=== PATIENT | male | born 1950 | race Caucasian/White ===

== ENCOUNTER 2016-11-29 04:48 | Inpatient (IN) | payer MEDICARE, OTHER ==
[2016-11-29] MEDS ORDERED: Albuterol/Ipratropium 3.0-0.5 MG/3 ML Neb Soln NEB ONE (04:53)
[2016-11-29] MEDS ORDERED: Sodium Chloride 0.9% 10 ML Syringe FLUSH PRN (04:55)
[2016-11-29] MEDS ORDERED: methylPREDNISolone Sodium Succinate 125 MG/2 ML SDV IVPUSH ONE (04:55)
[2016-11-29] MEDS ORDERED: Aspirin 81 MG Tab.Chew PO ONE (04:55)
[2016-11-29] MEDS ORDERED: Sodium Chloride 0.9% 2.5 ML Syringe FLUSH PRN (04:55)
[2016-11-29] MEDS ORDERED: Sodium Chloride 0.9% 500 ML IV SCH (05:00)
--- NOTE | 2016-11-29 05:01 | EDM.PDOC ---
ED HPI GENERAL MEDICAL PROBLEM - General Chief Complaint: Respiratory Problem Stated Complaint: SHORTNESS OF BREATH Time Seen by Provider: 11/29/16 04:54 - History of Present Illness INITIAL COMMENTS - FREE TEXT/NARRATIVE: HISTORY AND PHYSICAL: History of present illness: The patient is a 66-year-old male who follows at [facility] with Dr. Saldivar and presents to the ED with sudden onset of waking with shortness of breath that started about a half an hour ago. The patient denies any chest pain with this shortness of breath and has no pain with deep breathing but feels like he "can't get enough air". Earlier yesterday he had a normal day without any fever chills cough chest pain shortness of breath or abdominal complaints and has no leg pain or swelling. Currently he denies all of these same symptoms except for shortness of breath. Patient has a history of hypertension non- insulin-dependent diabetes hypercholesterolemia and states he had a stent placed in his aorta many years ago but has never had any cardiac disease. The patient has a history of tobacco use until 2006 when he quit but he has at least 25-30 years of smoking in his history. He has never been diagnosed with any pulmonary disease. The patient states he normally sleeps on one pill and was doing that last evening without any distress. He states that he woke from sleep and had a dry hacking cough and felt the shortness of breath and came here for evaluation. In the ED at the time of my initial valuation he again denies chest pain abdominal pain nausea diaphoresis or back pain. Review of systems: As per history of present illness and below otherwise all systems reviewed and negative. Past medical history: As per history of present illness and as reviewed below otherwise noncontributory. Surgical history: As per history of present illness and as reviewed below otherwise noncontributory. Social history: No reported history of drug or alcohol abuse. Family history: As per history of present illness and as reviewed below otherwise noncontributory. Physical exam: General: Well-developed well-nourished man who is speaking clearly and easily in the ED but has a nasal quality to his voice. He is not breathless but seems to have somewhat labored breathing with activity. His O2 sat on initial arrival on room air was 86%. He was mostly mouth breathing on my initial evaluation. His sats did come up with oxygen therapy HEENT: Atraumatic, normocephalic, pupils reactive, negative for conjunctival pallor or scleral icterus, mucous membranes dry, throat clear, neck supple, nontender, trachea midline. Lungs: very diminished lung sounds throughout all meadows with diminished air exchange and there is a fine expiratory wheeze heard scattered but there is no stridor, there is some abdominal work of breathing but no intercostal muscle use , breath sounds equal bilaterally, chest nontender. Heart: S1S2, regular, negative for clicks, rubs, or JVD. Abdomen: Soft, nondistended, nontender. Negative for masses or hepatosplenomegaly. Negative for costovertebral tenderness. Pelvis: Stable nontender. Genitourinary: Deferred. Rectal: Deferred. Extremities: Atraumatic, negative for cords or calf pain. Neurovascular unremarkable. There is no pedal edema or leg asymmetry and there are old well- healed knee surgery scar seen bilaterally. Neuro: Awake, alert, oriented. Cranial nerves II through XII unremarkable. Cerebellum unremarkable. Motor and sensory unremarkable throughout. Exam nonfocal. Diagnostics: EKG chest x-ray CBC CMP INR BNP troponin d-dimer As d-dimer is positive we will do CTA of the chest Therapeutics: IV O2 monitor gentle IV fluids duo neb Solu-Medrol aspirin 0505: After duo neb the patient states he is feeling much improved and able to move air better and does not feel it is hungry for air. His O2 sats on 2 L are 96-97 and on auscultation he is much more open and moving air significantly better than initial evaluation 0600: Patient has returned from CT scan I have discussed with him that despite those results we'll plan for admission due to his initial presentation with hypoxia and his improvement with the albuterol and Solu-Medrol without a diagnosis of pulmonary disease. I will discuss the case with Dr. Nunes and plan for admission 0637: CT scan and case with all labs were discussed with our hospitalist Dr. Nunes and he accepts the patient for admission. He does not want blood cultures to be drawn and he requests Levaquin to be given. The patient is aware of the need for this admission and is agreeable Impression: Dyspnea with hypoxia, pneumonia, long history of tobacco use rule out COPD Definitive disposition and diagnosis as appropriate pending reevaluation and review of above. - Related Data Allergies Allergy/AdvReac Type Severity Reaction Status Date / Time amoxicillin [Amoxicillin] Allergy Stomach Verified 01/15/16 12:24 Upset Mushrooms Allergy Stomach Uncoded 01/15/16 12:24 Upset Home Meds: Home Meds Cyanocobalamin (Vitamin B-12) [B-12] 1,000 mcg PO DAILY 05/25/14 [History] metFORMIN [Glucophage] 500 mg PO DAILY 05/25/14 [History] Docusate Sodium [Colace] 1 cap PO ASDIRECTED 02/14/16 [History] Ferrous Gluconate 1 tab PO DAILY 02/14/16 [History] Folic Acid 1 tab PO DAILY 02/14/16 [History] Hydrocodone/Acetaminophen [Hydrocodon-Acetaminophen 5-325] 1 - 2 tab PO Q6H PRN 02/14/16 [History] Lisinopril 1 tab PO DAILY 02/14/16 [History] Lovastatin 1 tab PO DAILY 02/14/16 [History] Omeprazole 1 cap PO DAILY 02/14/16 [History] Past Medical History HEENT History: Reports: Hard of Hearing, Impaired Vision Other HEENT History: wears glasses, has upper and lower dentures, has bilateral hearing aides Cardiovascular History: Reports: Aneurysm, High Cholesterol, Hypertension Respiratory History: Reports: Asthma Other Respiratory History: no asthma symptoms for many years, had sleep apnea before gastric bypass...not now Gastrointestinal History: Reports: None Genitourinary History: Reports: Renal Calculus Musculoskeletal History: Reports: Back Pain, Chronic, Fracture Other Musculoskeletal History: bilateral wrists Neurological History: Reports: Other (See Below) Other Neuro History: had a "black out" the end of October, will be tested for seizures Psychiatric History: Reports: Aggressive/Hostile Behaviors, Anxiety, Depression Other Psychiatric History: states he take "anger medicine" Endocrine/Metabolic History: Reports: Diabetes, Type II, Obesity/BMI 30+ Hematologic History: Reports: None Immunologic History: Reports: None Oncologic (Cancer) History: Reports: None Dermatologic History: Reports: None - Infectious Disease History Infectious Disease History: Reports: Chicken Pox, Measles, Mumps, Shingles - Past Surgical History GI Surgical History: Reports: Bariatric Procedure Male Surgical History: Reports: Kidney Stone Extraction Musculoskeletal Surgical History: Reports: Amputation, Knee Replacement, Other ( See Below) Social & Family History - Family History Family Medical History: Noncontributory - Tobacco Use Smoking Status *Q: Former Smoker Years of Tobacco use: 25 Used Tobacco, but Quit: Yes Month Tobacco Last Used: 9 years ago Second Hand Smoke Exposure: No - Alcohol Use Days Per Week of Alcohol Use: 0 Number of Drinks Per Day: 0 Total Drinks Per Week: 0 - Recreational Drug Use Recreational Drug Use: No Drug Use in Last 12 Months: No ED ROS GENERAL - Review of Systems Review Of Systems: ROS reveals no pertinent complaints other than HPI. ED EXAM, GENERAL - Physical Exam Exam: See Below (See dictation) Course - Vital Signs Last Recorded V/S: Last Vital Signs Temp 36.6 C 11/29/16 04:53 Pulse 76 11/29/16 06:19 Resp 17 11/29/16 06:19 BP 174/78 H 11/29/16 06:19 Pulse Ox 98 11/29/16 06:19 - Orders/Labs/Meds Orders: Active Orders 24 hr Category Date Time Status Patient Status [ADT] Stat ADT 11/29/16 06:38 Ordered Cardiac Monitoring [RC] . DIRECTED Care 11/29/16 04:54 Active EKG Documentation Completion [RC] STAT Care 11/29/16 04:54 Active Oxygen Therapy, ED [RC] ASDIRECTED Care 11/29/16 04:54 Active Pulse Oximetry [RC] ASDIRECTED Care 11/29/16 04:54 Active RT Aerosol Therapy [RC] ASDIRECTED Care 11/29/16 04:53 Active Ang Chest [CT] Stat Exams 11/29/16 05:33 Taken Chest 1V Frontal [CR] Stat Exams 11/29/16 04:55 Taken Levofloxacin/Dextrose 5%-Water [Levaquin in D5W 750 MG/ Med 11/29/16 06:38 Ordered 150 ML] 750 mg Premix Bag 1 bag IV ONETIME Sodium Chloride 0.9% [Normal Saline] 500 ml Med 11/29/16 05:00 Active IV STAT Sodium Chloride 0.9% [Saline Flush] Med 11/29/16 04:55 Active 10 ml FLUSH ASDIRECTED PRN Sodium Chloride 0.9% [Saline Flush] Med 11/29/16 04:55 Active 2.5 ml FLUSH ASDIRECTED PRN Saline Lock Insert [OM.PC] Stat Oth 05/14/17 04:54 Ordered Medication Orders Sodium Chloride (Normal Saline) 500 mls @ 999 mls/hr IV STAT MISTI Last Admin: 11/29/16 05:17 Dose: 999 mls/hr Sodium Chloride (Saline Flush) 10 ml FLUSH ASDIRECTED PRN PRN Reason: Keep Vein Open Last Admin: 11/29/16 05:19 Dose: 10 ml Sodium Chloride (Saline Flush) 2.5 ml FLUSH ASDIRECTED PRN PRN Reason: Keep Vein Open Last Admin: 11/29/16 05:21 Dose: 2.5 ml Labs: Laboratory Tests 11/29/16 11/29/16 11/29/16 Range/Units 04:55 04:55 04:55 WBC 4.17 (4.0-11.0) K/uL RBC 3.80 L (4.50-5.90) M/uL Hgb 11.1 L (13.0-17.0) g/dL Hct 34.7 L (38.0-50.0) % MCV 91.3 (80.0-98.0) fL MCH 29.2 (27.0-32.0) pg MCHC 32.0 (31.0-37.0) g/dL RDW Std Deviation 45.4 (28.0-62.0) fl RDW Coeff of Comfort 14 (11.0-15.0) % Plt Count 208 (150-400) K/uL MPV 10.00 (7.40-12.00) fL Neut % (Auto) 49.6 (48.0-80.0) % Lymph % (Auto) 40.3 H (16.0-40.0) % Mckenzie % (Auto) 6.5 (0.0-15.0) % Eos % (Auto) 2.6 (0.0-7.0) % Baso % (Auto) 1.0 (0.0-1.5) % Neut # (Auto) 2.1 (1.4-5.7) K/uL Lymph # (Auto) 1.7 (0.6-2.4) K/uL Mckenzie # (Auto) 0.3 (0.0-0.8) K/uL Eos # (Auto) 0.1 (0.0-0.7) K/uL Baso # (Auto) 0.0 (0.0-0.1) K/uL Nucleated RBC % 0.0 /100WBC Nucleated RBCs # 0 K/uL INR 1.06 (0.86-1.11) D-Dimer, Quantitative (0.0-0.52) mg/LFEU Lactate (0.20-2.00) mmol/L Sodium 142 (136-146) mmol/L Potassium 4.1 (3.5-5.1) mmol/L Chloride 108 (98-110) mmol/L Carbon Dioxide 23 (21-31) mmol/L BUN 10 (6.0-23.0) mg/dL Creatinine 1.0 (0.6-1.5) mg/dL Est Cr Clr Drug Dosing 78.44 mL/min Estimated GFR (MDRD) > 60.0 ml/min Glucose 113 H (60-110) mg/dL Calcium 9.2 (8.8-10.8) mg/dL Total Bilirubin 0.4 (0.1-1.5) mg/dL AST 19 (5-40) IU/L ALT 17 (8-54) IU/L Alkaline Phosphatase 44 (40-150) Troponin I (0.0-0.29) NG/ML B-Natriuretic Peptide (<100) PG/ML Total Protein 6.7 (6.0-8.0) g/dL Albumin 4.0 (3.4-4.8) g/dL Globulin 2.7 (2.0-3.5) g/dL Albumin/Globulin Ratio 1.5 (1.3-2.8) 11/29/16 11/29/16 11/29/16 Range/Units 04:55 04:55 04:55 WBC (4.0-11.0) K/uL RBC (4.50-5.90) M/uL Hgb (13.0-17.0) g/dL Hct (38.0-50.0) % MCV (80.0-98.0) fL MCH (27.0-32.0) pg MCHC (31.0-37.0) g/dL RDW Std Deviation (28.0-62.0) fl RDW Coeff of Comfort (11.0-15.0) % Plt Count (150-400) K/uL MPV (7.40-12.00) fL Neut % (Auto) (48.0-80.0) % Lymph % (Auto) (16.0-40.0) % Mckenzie % (Auto) (0.0-15.0) % Eos % (Auto) (0.0-7.0) % Baso % (Auto) (0.0-1.5) % Neut # (Auto) (1.4-5.7) K/uL Lymph # (Auto) (0.6-2.4) K/uL Mckenzie # (Auto) (0.0-0.8) K/uL Eos # (Auto) (0.0-0.7) K/uL Baso # (Auto) (0.0-0.1) K/uL Nucleated RBC % /100WBC Nucleated RBCs # K/uL INR (0.86-1.11) D-Dimer, Quantitative 2.05 H (0.0-0.52) mg/LFEU Lactate (0.20-2.00) mmol/L Sodium (136-146) mmol/L Potassium (3.5-5.1) mmol/L Chloride (98-110) mmol/L Carbon Dioxide (21-31) mmol/L BUN (6.0-23.0) mg/dL Creatinine (0.6-1.5) mg/dL Est Cr Clr Drug Dosing mL/min Estimated GFR (MDRD) ml/min Glucose (60-110) mg/dL Calcium (8.8-10.8) mg/dL Total Bilirubin (0.1-1.5) mg/dL AST (5-40) IU/L ALT (8-54) IU/L Alkaline Phosphatase (40-150) Troponin I < 0.10 (0.0-0.29) NG/ML B-Natriuretic Peptide 64 (<100) PG/ML Total Protein (6.0-8.0) g/dL Albumin (3.4-4.8) g/dL Globulin (2.0-3.5) g/dL Albumin/Globulin Ratio (1.3-2.8) 11/29/ Range/Units 04:55 WBC (4.0-11.0) K/uL RBC (4.50-5.90) M/uL Hgb (13.0-17.0) g/dL Hct (38.0-50.0) % MCV (80.0-98.0) fL MCH (27.0-32.0) pg MCHC (31.0-37.0) g/dL RDW Std Deviation (28.0-62.0) fl RDW Coeff of Comfort (11.0-15.0) % Plt Count (150-400) K/uL MPV (7.40-12.00) fL Neut % (Auto) (48.0-80.0) % Lymph % (Auto) (16.0-40.0) % Mckenzie % (Auto) (0.0-15.0) % Eos % (Auto) (0.0-7.0) % Baso % (Auto) (0.0-1.5) % Neut # (Auto) (1.4-5.7) K/uL Lymph # (Auto) (0.6-2.4) K/uL Mckenzie # (Auto) (0.0-0.8) K/uL Eos # (Auto) (0.0-0.7) K/uL Baso # (Auto) (0.0-0.1) K/uL Nucleated RBC % /100WBC Nucleated RBCs # K/uL INR (0.86-1.11) D-Dimer, Quantitative (0.0-0.52) mg/LFEU Lactate 0.9 (0.20-2.00) mmol/L Sodium (136-146) mmol/L Potassium (3.5-5.1) mmol/L Chloride (98-110) mmol/L Carbon Dioxide (21-31) mmol/L BUN (6.0-23.0) mg/dL Creatinine (0.6-1.5) mg/dL Est Cr Clr Drug Dosing mL/min Estimated GFR (MDRD) ml/min Glucose (60-110) mg/dL Calcium (8.8-10.8) mg/dL Total Bilirubin (0.1-1.5) mg/dL AST (5-40) IU/L ALT (8-54) IU/L Alkaline Phosphatase (40-150) Troponin I (0.0-0.29) NG/ML B-Natriuretic Peptide (<100) PG/ML Total Protein (6.0-8.0) g/dL Albumin (3.4-4.8) g/dL Globulin (2.0-3.5) g/dL Albumin/Globulin Ratio (1.3-2.8) Meds: Medications Generic Name Dose Route Start Last Admin Trade Name Freq PRN Reason Stop Dose Admin Sodium Chloride 500 mls @ 999 mls/hr 11/29/16 05:00 11/29/16 05:17 Normal Saline IV 999 mls/hr STAT MISTI Administration Sodium Chloride 10 ml 11/29/16 04:55 11/29/16 05:19 Saline Flush FLUSH 10 ml ASDIRECTED PRN Administration Keep Vein Open Sodium Chloride 2.5 ml 11/29/16 04:55 11/29/16 05:21 Saline Flush FLUSH 2.5 ml ASDIRECTED PRN Administration Keep Vein Open Discontinued Medications Generic Name Dose Route Start Last Admin Trade Name Freq PRN Reason Stop Dose Admin Albuterol/Ipratropium 3 ml 11/29/16 04:53 11/29/16 05:08 Duoneb 3.0-0.5 Mg/3 Ml NEB 11/29/16 04:54 3 ml ONETIME ONE Administration Aspirin 324 mg 11/29/16 04:55 11/29/16 05:18 Aspirin PO 11/29/16 04:56 324 mg ONETIME ONE Administration Iopamidol 50 ml 11/29/16 06:15 11/29/16 06:16 Isovue Multipack-370 (76%) IVPUSH 11/29/16 06:16 50 ml ONETIME STA Administration Methylprednisolone Sodium Succinate 125 mg 11/29/16 04:55 11/29/16 05:20 Solu-Medrol IVPUSH 11/29/16 04:56 125 mg ONETIME ONE Administration Departure - Departure Time of Disposition: 06:41 Disposition: Admitted As Inpatient 67 Condition: good Clinical Impression: Hypoxia, Bronchospasm, acute Pneumonia Qualifiers: Pneumonia type: due to unspecified organism Dyspnea Qualifiers: Dyspnea type: unspecified Qualified Code(s): R06.00 - Dyspnea, unspecified - Discharge Information Forms: ED Department Discharge - My Orders Last 24 Hours: My Active Orders 11/29/16 04:53 RT Aerosol Therapy [RC] ASDIRECTED 11/29/16 04:54 Cardiac Monitoring [RC] . DIRECTED EKG Documentation Completion [RC] STAT Oxygen Therapy, ED [RC] ASDIRECTED Pulse Oximetry [RC] ASDIRECTED Saline Lock Insert [OM.PC] Stat 11/29/16 04:55 Chest 1V Frontal [CR] Stat Sodium Chloride 0.9% [Saline Flush] 10 ml FLUSH ASDIRECTED PRN Sodium Chloride 0.9% [Saline Flush] 2.5 ml FLUSH ASDIRECTED PRN 11/29/16 05:00 Sodium Chloride 0.9% [Normal Saline] 500 ml IV STAT 11/29/16 05:33 Ang Chest [CT] Stat 11/29/16 06:38 Patient Status [ADT] Stat Levofloxacin/Dextrose 5%-Water [Levaquin in D5W 750 MG/150 ML] 750 mg Premix Bag 1 bag IV ONETIME - Assessment/Plan Last 24 Hours: My Active Orders 11/29/16 04:53 RT Aerosol Therapy [RC] ASDIRECTED 11/29/16 04:54 Cardiac Monitoring [RC] . DIRECTED EKG Documentation Completion [RC] STAT Oxygen Therapy, ED [RC] ASDIRECTED Pulse Oximetry [RC] ASDIRECTED Saline Lock Insert [OM.PC] Stat 11/29/16 04:55 Chest 1V Frontal [CR] Stat Sodium Chloride 0.9% [Saline Flush] 10 ml FLUSH ASDIRECTED PRN Sodium Chloride 0.9% [Saline Flush] 2.5 ml FLUSH ASDIRECTED PRN 11/29/16 05:00 Sodium Chloride 0.9% [Normal Saline] 500 ml IV STAT 11/29/16 05:33 Ang Chest [CT] Stat 11/29/16 06:38 Patient Status [ADT] Stat Levofloxacin/Dextrose 5%-Water [Levaquin in D5W 750 MG/150 ML] 750 mg Premix Bag 1 bag IV ONETIME
[2016-11-29 05:30] LABS: CHLORIDE,CL 108 mmol/L (98-110); SODIUM,NA 142 mmol/L (136-146)
[2016-11-29] MEDS ORDERED: Iopamidol 755 MG/ML 500 ML Multipack Bottle IVPUSH STA (06:15)
[2016-11-29] MEDS ORDERED: Levofloxacin/Dextrose 5%-Water 750 MG in Premix Bag 1 BAG IV ONE (06:38)
[2016-11-29] MEDS ORDERED: Acetaminophen/HYDROcodone 325-7.5 MG Tab PO PRN (09:36)
--- NOTE | 2016-11-29 10:09 | PCM.HP ---
H&P History of Present Illness - General Date of Service: 11/29/16 Admit Problem/Dx: Admission Diagnosis/Problem Admission Diagnosis/Problem Pneumonia Source of Information: Patient, Provider - History of Present Illness Initial Comments - Free Text/Narative: He was seen in the ED for dyspnea and noted be hypoxic. His CXR showed right sided infiltrate - Related Data Allergies/Adverse Reactions: Allergies Allergy/AdvReac Type Severity Reaction Status Date / Time amoxicillin [Amoxicillin] Allergy Stomach Verified 01/15/16 12:24 Upset Mushrooms Allergy Stomach Uncoded 01/15/16 12:24 Upset Home Medications: Home Meds Cyanocobalamin (Vitamin B-12) [B-12] 1,000 mcg PO DAILY 05/25/14 [History] metFORMIN [Glucophage] 500 mg PO DAILY 05/25/14 [History] Docusate Sodium [Colace] 1 cap PO ASDIRECTED 02/14/16 [History] Ferrous Gluconate 1 tab PO DAILY 02/14/16 [History] Folic Acid 1 tab PO DAILY 02/14/16 [History] Hydrocodone/Acetaminophen [Hydrocodon-Acetaminophen 5-325] 1 - 2 tab PO Q6H PRN 02/14/16 [History] Lisinopril 1 tab PO DAILY 02/14/16 [History] Lovastatin 1 tab PO DAILY 02/14/16 [History] Omeprazole 1 cap PO DAILY 02/14/16 [History] Albuterol Sulfate [Proair Hfa] 2 puff IH Q4H PRN #1 hfa.aer.ad 11/29/16 [Rx] Levofloxacin [Levaquin] 750 mg PO DAILY #6 tablet 11/29/16 [Rx] Past Medical History HEENT History: Reports: Hard of Hearing, Impaired Vision Other HEENT History: wears glasses, has upper and lower dentures, has bilateral hearing aides Cardiovascular History: Reports: Aneurysm, High Cholesterol, Hypertension Respiratory History: Reports: Asthma Other Respiratory History: no asthma symptoms for many years, had sleep apnea before gastric bypass...not now Gastrointestinal History: Reports: None Genitourinary History: Reports: Renal Calculus Musculoskeletal History: Reports: Back Pain, Chronic, Fracture Other Musculoskeletal History: bilateral wrists Neurological History: Reports: Other (See Below) Other Neuro History: had a "black out" the end of October, will be tested for seizures Psychiatric History: Reports: Aggressive/Hostile Behaviors, Anxiety, Depression Other Psychiatric History: states he take "anger medicine" Endocrine/Metabolic History: Reports: Diabetes, Type II, Obesity/BMI 30+ Hematologic History: Reports: None Immunologic History: Reports: None Oncologic (Cancer) History: Reports: None Dermatologic History: Reports: None - Infectious Disease History Infectious Disease History: Reports: Chicken Pox, Measles, Mumps, Shingles - Past Surgical History GI Surgical History: Reports: Bariatric Procedure Male Surgical History: Reports: Kidney Stone Extraction Musculoskeletal Surgical History: Reports: Amputation, Knee Replacement, Other ( See Below) Social & Family History - Family History Family Medical History: Noncontributory - Tobacco Use Smoking Status *Q: Former Smoker Years of Tobacco use: 25 Used Tobacco, but Quit: Yes Month Tobacco Last Used: 9 years ago Second Hand Smoke Exposure: No - Alcohol Use Days Per Week of Alcohol Use: 0 Number of Drinks Per Day: 0 Total Drinks Per Week: 0 - Recreational Drug Use Recreational Drug Use: No Drug Use in Last 12 Months: No H&P Review of Systems - Review of Systems: Review Of Systems: See Below Free Text/Narrative: as per Dr Box's note. no vomiting he is complaining of back pain and insists on leaving AMA this am even before I have seen him. Exam - Exam Exam: See Below - Vital Signs Vital Signs: Last Vital Signs Temp 97.8 F 11/29/16 04:53 Pulse 74 11/29/16 06:56 Resp 17 11/29/16 06:56 BP 150/78 H 11/29/16 06:56 Pulse Ox 97 11/29/16 06:56 Weight: 106.594 kg - Exam General: Alert Neck: Supple, Trachea Midline Lungs: Clear to Auscultation, Normal Respiratory Effort Cardiovascular: Regular Rate, Regular Rhythm Neurological: Cranial Nerves Intact, Normal Speech Physical Exam Comments:: he has expressed agitation to nursing staff although he was relatively cooperative with me. He expressed that he is leaving the hospital but agrees to accept antibiotic prescription and inhaler prescription - Patient Data Result Diagrams: 11/29/16 04:55 11/29/16 04:55 *Q Meaningful Use (ADM) - VTE *Q VTE Criteria *Q: - Stroke *Q Stroke Criteria *Q: - AMI *Q AMI Criteria *Q: - Problem List (1) Pneumonia SNOMED Code(s): 851617446 ICD Code: J18.9 - PNEUMONIA, UNSPECIFIED ORGANISM Status: Acute Current Visit: Yes Qualifiers: Pneumonia type: due to unspecified organism Problem List Initiated/Reviewed/Updated: Yes Orders Last 24hrs: Active Orders 24 hr Category Date Time Status Oxygen Therapy Adult [Oxygen Therapy] [RC] ASDIRECTED Care 11/29/16 08:11 Active Ready for Discharge [RC] PER UNIT ROUTINE Care 11/29/16 10:04 Ordered Vital Signs [RC] Q4H Care 11/29/16 08:11 Active Regular Diet [DIET] Diet 11/29/16 Breakfast Active Acetaminophen/HYDROcodone [[place] 325-7.5 MG] Med 11/29/16 09:36 Active 1 tab PO Q4H PRN Levofloxacin/Dextrose 5%-Water [Levaquin in D5W 750 MG/ Med 11/30/16 06:00 Active 150 ML] 750 mg Premix Bag 1 bag IV Q24H Medication Orders Hydrocodone Bitart/Acetaminophen ([place] 325-7.5 Mg) 1 tab PO Q4H PRN PRN Reason: Pain Last Admin: 11/29/16 09:54 Dose: 1 tab Sodium Chloride (Normal Saline) 500 mls @ 999 mls/hr IV STAT MISTI Last Admin: 11/29/16 05:17 Dose: 999 mls/hr Levofloxacin/Dextrose 750 mg/ (Premix) 150 mls @ 100 mls/hr IV Q24H MISTI Sodium Chloride (Saline Flush) 10 ml FLUSH ASDIRECTED PRN PRN Reason: Keep Vein Open Last Admin: 11/29/16 05:19 Dose: 10 ml Sodium Chloride (Saline Flush) 2.5 ml FLUSH ASDIRECTED PRN PRN Reason: Keep Vein Open Last Admin: 11/29/16 05:21 Dose: 2.5 ml Assessment/Plan Comment:: He insists on leaving promptly AMA. He agreed to accept antibiotic and inhaler prescriptions history and exam were somewhat cursory because of concern about causing increased agitation . Pj Nunes MD
--- NOTE | 2016-11-29 10:12 | PCM.DCSUM1 ---
Discharge Summary - Hospital Course Brief History: he was admitted for pneumonia - Discharge Data Discharge Date: 11/29/16 Discharge Disposition: Against Medical Advice 07 Condition: Fair - Discharge Diagnosis/Problem(s) (1) Pneumonia SNOMED Code(s): 829598626 ICD Code: J18.9 - PNEUMONIA, UNSPECIFIED ORGANISM Status: Acute Current Visit: Yes Qualifiers: Pneumonia type: due to unspecified organism - Patient Summary/Data Hospital Course: shortly after arriving to the medical floor, he insisted on going home against medical advice. I spoke with him briefly. He was polite to me and agreed to accept prescriptions. - Discharge Plan Prescriptions/Med Rec: Albuterol Sulfate [Proair Hfa] 2 puff IH Q4H PRN #1 hfa.aer.ad PRN Reason: Wheezing Levofloxacin [Levaquin] 750 mg PO DAILY #6 tablet Home Medications: Home Meds Cyanocobalamin (Vitamin B-12) [B-12] 1,000 mcg PO DAILY 05/25/14 [History] metFORMIN [Glucophage] 500 mg PO DAILY 05/25/14 [History] Docusate Sodium [Colace] 1 cap PO ASDIRECTED 02/14/16 [History] Ferrous Gluconate 1 tab PO DAILY 02/14/16 [History] Folic Acid 1 tab PO DAILY 02/14/16 [History] Hydrocodone/Acetaminophen [Hydrocodon-Acetaminophen 5-325] 1 - 2 tab PO Q6H PRN 02/14/16 [History] Lisinopril 1 tab PO DAILY 02/14/16 [History] Lovastatin 1 tab PO DAILY 02/14/16 [History] Omeprazole 1 cap PO DAILY 02/14/16 [History] Albuterol Sulfate [Proair Hfa] 2 puff IH Q4H PRN #1 hfa.aer.ad 11/29/16 [Rx] Levofloxacin [Levaquin] 750 mg PO DAILY #6 tablet 11/29/16 [Rx] Forms: ED Department Discharge Referrals: Liam Saldivar MD [Primary Care Provider] - - Patient Data Vitals - Most Recent: Last Vital Signs Temp 97.8 F 11/29/16 04:53 Pulse 74 11/29/16 06:56 Resp 17 11/29/16 06:56 BP 150/78 H 11/29/16 06:56 Pulse Ox 97 11/29/16 06:56 Weight - Most Recent: 106.594 kg Med Orders - Current: Current Medications Hydrocodone Bitart/Acetaminophen ([place] 325-7.5 Mg) 1 tab PO Q4H PRN PRN Reason: Pain Last Admin: 11/29/16 09:54 Dose: 1 tab Sodium Chloride (Normal Saline) 500 mls @ 999 mls/hr IV STAT MISTI Last Admin: 11/29/16 05:17 Dose: 999 mls/hr Levofloxacin/Dextrose 750 mg/ (Premix) 150 mls @ 100 mls/hr IV Q24H MISTI Sodium Chloride (Saline Flush) 10 ml FLUSH ASDIRECTED PRN PRN Reason: Keep Vein Open Last Admin: 11/29/16 05:19 Dose: 10 ml Sodium Chloride (Saline Flush) 2.5 ml FLUSH ASDIRECTED PRN PRN Reason: Keep Vein Open Last Admin: 11/29/16 05:21 Dose: 2.5 ml Discontinued Medications Albuterol/Ipratropium (Duoneb 3.0-0.5 Mg/3 Ml) 3 ml NEB ONETIME ONE Stop: 11/29/16 04:54 Last Admin: 11/29/16 05:08 Dose: 3 ml Aspirin (Aspirin) 324 mg PO ONETIME ONE Stop: 11/29/16 04:56 Last Admin: 11/29/16 05:18 Dose: 324 mg Levofloxacin/Dextrose 750 mg/ (Premix) 150 mls @ 100 mls/hr IV ONETIME ONE Stop: 11/29/16 08:07 Last Admin: 11/29/16 06:53 Dose: 100 mls/hr Iopamidol (Isovue Multipack-370 (76%)) 50 ml IVPUSH ONETIME STA Stop: 11/29/16 06:16 Last Admin: 11/29/16 06:16 Dose: 50 ml Methylprednisolone Sodium Succinate (Solu-Medrol) 125 mg IVPUSH ONETIME ONE Stop: 11/29/16 04:56 Last Admin: 11/29/16 05:20 Dose: 125 mg *Q Meaningful Use (DIS) - VTE *Q VTE Criteria *Q: - Stroke *Q Stroke Criteria *Q: - AMI *Q AMI Criteria *Q:
[2016-11-29 12:51] VITALS: BP 164/78
[2016-11-30] MEDS ORDERED: Levofloxacin/Dextrose 5%-Water 750 MG in Premix Bag 1 BAG IV SCH (06:00)
--- NOTE | 2016-11-30 16:42 | CR ---
EXAM DATE: 11/29/16 PATIENT'S AGE: 66 Patient: GAY FREIRE Facility: [place], [place] Site . Site : 1950 Study: XRay Chest [id number]/14/2017 5:21:30 AM Ordering Physician: Charu Thomas Final Report: Indication: Shortness of breath Technique: Chest 1 view Comparison: 02/21/2009. Findings/Impression: Cardiovascular and mediastinum: Upper limits of normal cardiac size, at least partially related to the portable technique. Lungs and pleural space: A right infrahilar opacity, atelectasis or focal consolidation. Correlate for pneumonia and followup. No pleural effusions. Bones and soft tissues: No significant change. Dictated by Juancarlos Lincoln MD @ 11/29/2016 5:54:16 AM Dictated by: Juancarlos Lincoln MD @ 11/29/2016 05:54:21 (Electronic Signature) Report Signed by Proxy. OSWALD
--- NOTE | 2016-11-30 16:44 | CT ---
EXAM DATE: 11/29/16 PATIENT'S AGE: 66 Patient: GAY FREIRE Facility: [place], [place] Site . Site : 1950 Study: CT Chest Angio [id number]/14/2017 6:12:57 AM Ordering Physician: Charu Thomas Final Report: INDICATION: Elevated D-dimer TECHNIQUE: CT chest pulmonary PE protocol acquired with IV contrast. COMPARISON: None FINDINGS: Cardiovascular structures: No pulmonary arterial filling defects seen. Prominence of the main pulmonary arteries suggestive of pulmonary arterial hypertension. Normal cardiac size. Borderline dilatation of the ascending aorta measuring 4 centimeters. Atherosclerotic changes. Mediastinum and margareth: Multiple mediastinal and hilar lymph node calcifications consistent with old granulomatous disease. Lungs: Ill-defined patchy and nodular ground-glass opacities bilaterally, right greater than left, consistent with an infectious/ inflammatory pneumonitis. Mild emphysematous changes. Multiple calcified granulomas. Mild bronchial wall thickening in the lower lobes suggestive of bronchitis. Pleura and pericardium: No pleural effusions. Small anterior pericardial fluid. Chest wall and axilla: No mass or adenopathy. Mild subcutaneous edema. Upper abdomen: Calcified splenic granulomas. Post gastric bypass changes. Bones: Partially imaged postsurgical changes in the lower cervical spine. IMPRESSION: No CT evidence of a pulmonary embolus. Prominence of the main pulmonary arteries suggestive of pulmonary arterial hypertension. Ill-defined patchy and nodular bilateral pulmonary ground-glass opacities compatible with an infectious process. Mild lower lobe bronchial wall thickening suggestive of bronchitis. Old granulomatous disease. Borderline aneurysmal dilatation of the ascending aorta. Dictated by Juancarlos Lincoln MD @ 11/29/2016 6:33:09 AM Dictated by: Juancarlos Lincoln MD @ 11/29/2016 06:33:15 (Electronic Signature) Report Signed by Proxy. OSWALD
== END 2016-11-29 10:20 | disposition left against medical advice (07) | DRG 195 ==
LOC: MW.ED 04:48 → MW.MS 06:38
PROVIDERS: ADMIT Family Medicine; ATTEND Family Medicine
DX: J98.01 Acute bronchospasm (principal); J18.9 Pneumonia, unspecified organism; R09.02 Hypoxemia; Z88.1 Allergy status to other antibiotic agents; Z79.899 Other long term (current) drug therapy; E78.00 Pure hypercholesterolemia, unspecified; I10 Essential (primary) hypertension; J45.909 Unspecified asthma, uncomplicated; F41.8 Other specified anxiety disorders; E11.9 Type 2 diabetes mellitus without complications; E66.9 Obesity, unspecified; Z68.30 Body mass index [BMI] 30.0-30.9, adult; Z87.891 Personal history of nicotine dependence
CPT/HCPCS: 36415; 71010; 71275; 80053; 83605; 83880; 84484; 85025; 85379; 85610; 93005; 96361; 96375; 99285; A9270; J2930; J7040; Q9967; 96365; 96374; J1956

== ENCOUNTER 2018-10-05 19:35 | Emergency (ER) | payer MEDICARE, OTHER ==
--- NOTE | 2018-10-05 19:52 | EDM.PDOC ---
ED HPI GENERAL MEDICAL PROBLEM - General Chief Complaint: General Stated Complaint: BADLY SHAKING Time Seen by Provider: 10/05/18 19:37 - History of Present Illness INITIAL COMMENTS - FREE TEXT/NARRATIVE: HISTORY AND PHYSICAL: History of present illness: Patient's a 68-year-old white male who was just discharged from the hospital status post back surgery for spinal fusion who also was diagnosed with postoperative anemia and was here today to recheck his blood count he states he felt a little bit unsteady and was somewhat anxious and presents now for CBC there's been no fever vomiting shortness breath and is otherwise doing well he states he actually feels better since arrival here. Patient states he was shaking prior to arrival this is vaguely described and has resolved Review of systems: As per history of present illness and below otherwise all systems reviewed and negative. Past medical history: As per history of present illness and as reviewed below otherwise noncontributory. Surgical history: As per history of present illness and as reviewed below otherwise noncontributory. Social history: No reported history of drug or alcohol abuse. Family history: As per history of present illness and as reviewed below otherwise noncontributory. Physical exam: HEENT: Atraumatic, normocephalic, pupils reactive, negative for conjunctival pallor or scleral icterus, mucous membranes moist, throat clear, neck supple, nontender, trachea midline. Lungs: Clear to auscultation, breath sounds equal bilaterally, chest nontender. Heart: S1S2, regular, negative for clicks, rubs, or JVD. Abdomen: Soft, nondistended, nontender. Negative for masses or hepatosplenomegaly. Negative for costovertebral tenderness. Pelvis: Stable nontender. Genitourinary: Deferred. Rectal: Deferred. Extremities: Atraumatic, negative for cords or calf pain. Neurovascular unremarkable. Neuro: Awake, alert, oriented. Cranial nerves II through XII unremarkable. Cerebellum unremarkable. Motor and sensory unremarkable throughout. Exam nonfocal. Diagnostics: CBC CMP PT/INR blood culture 2 UA chest x-ray influenza screen lactic acid Therapeutics: Saline at 125 mL an hour Impression: #1 history of recent spinal fusion #2 history of postoperative anemia #3 medical screening exam Definitive disposition and diagnosis as appropriate pending reevaluation and review of above. Back Pain Score (Numeric/FACES): 4 - Related Data Allergies Allergy/AdvReac Type Severity Reaction Status Date / Time amoxicillin [Amoxicillin] Allergy Stomach Verified 10/05/18 19:44 Upset Mushrooms Allergy Stomach Uncoded 10/05/18 19:44 Upset Home Meds: Home Meds metFORMIN [Glucophage] 500 mg PO DAILY 05/25/14 [History] Docusate Sodium [Colace] 1 cap PO ASDIRECTED 02/14/16 [History] Hydrocodone/Acetaminophen [Hydrocodon-Acetaminophen 5-325] 1 - 2 tab PO Q6H PRN 02/14/16 [History] Lovastatin 1 tab PO DAILY 02/14/16 [History] Omeprazole 1 cap PO DAILY 02/14/16 [History] Citalopram [Citalopram HBr] 20 mg PO DAILY 10/05/18 [History] Sildenafil [Revatio] 20 mg PO TID 10/05/18 [History] amLODIPine Besylate [Amlodipine Besylate] 5 mg PO 10/05/18 [History] busPIRone [Buspar] 10 mg PO BID 10/05/18 [History] traZODone HCl [Trazodone HCl] 200 mg PO DAILY 10/05/18 [History] Past Medical History HEENT History: Reports: Hard of Hearing, Impaired Vision Other HEENT History: wears glasses, has upper and lower dentures, has bilateral hearing aides Cardiovascular History: Reports: Aneurysm, High Cholesterol, Hypertension Respiratory History: Reports: Asthma Other Respiratory History: no asthma symptoms for many years, had sleep apnea before gastric bypass...not now Gastrointestinal History: Reports: None Genitourinary History: Reports: Renal Calculus Musculoskeletal History: Reports: Back Pain, Chronic, Fracture Other Musculoskeletal History: bilateral wrists Neurological History: Reports: Other (See Below) Other Neuro History: had a "black out" the end of October, will be tested for seizures Psychiatric History: Reports: Aggressive/Hostile Behaviors, Anxiety, Depression Other Psychiatric History: states he take "anger medicine" Endocrine/Metabolic History: Reports: Diabetes, Type II, Obesity/BMI 30+ Hematologic History: Reports: None Immunologic History: Reports: None Oncologic (Cancer) History: Reports: None Dermatologic History: Reports: None - Infectious Disease History Infectious Disease History: Reports: Chicken Pox, Measles, Mumps, Shingles - Past Surgical History Cardiovascular Surgical History: Reports: AAA Repair Social & Family History - Family History Family Medical History: Noncontributory ED ROS GENERAL - Review of Systems Review Of Systems: ROS reveals no pertinent complaints other than HPI. ED EXAM, GENERAL - Physical Exam Exam: See Below (See dictation) Course - Vital Signs Last Recorded V/S: Last Vital Signs Temp 37.6 C 10/05/18 19:44 Pulse 116 H 10/05/18 19:44 Resp 20 10/05/18 19:44 BP 155/74 H 10/05/18 19:44 Pulse Ox 96 10/05/18 19:44 - Orders/Labs/Meds Orders: Active Orders 24 hr Category Date Time Status EKG Documentation Completion [RC] STAT Care 10/05/18 19:52 Active Pulse Oximetry [RC] ASDIRECTED Care 10/05/18 19:53 Active Blood Culture x2 Reflex Set [OM.PC] Stat Oth 10/05/18 19:53 Ordered Meds: Medications Discontinued Medications Generic Name Dose Route Start Last Admin Trade Name Freq PRN Reason Stop Dose Admin Sodium Chloride 1,000 mls @ 125 mls/hr 10/05/18 20:00 Normal Saline IV STAT [facility] Departure - Departure Time of Disposition: 06:57 Disposition: Eloped 07 Condition: Undetermined Clinical Impression: Encounter for medical screening examination - Discharge Information Referrals: PCP,None [Primary Care Provider] - Forms: ED Department Discharge - My Orders Last 24 Hours: My Active Orders 10/05/18 19:52 EKG Documentation Completion [RC] STAT 10/05/18 19:53 Pulse Oximetry [RC] ASDIRECTED Blood Culture x2 Reflex Set [OM.PC] Stat - Assessment/Plan Last 24 Hours: My Active Orders 10/05/18 19:52 EKG Documentation Completion [RC] STAT 10/05/18 19:53 Pulse Oximetry [RC] ASDIRECTED Blood Culture x2 Reflex Set [OM.PC] Stat
[2018-10-05] MEDS ORDERED: Sodium Chloride 0.9% 1,000 ML IV SCH (20:00)
[2018-10-05 20:22] VITALS: BP 155/74
== END 2018-10-05 20:09 | disposition left against medical advice (07) ==
LOC: MW.ED 19:35
DX: R25.1 Tremor, unspecified (principal); Z13.9 Encounter for screening, unspecified; E11.9 Type 2 diabetes mellitus without complications; Z88.1 Allergy status to other antibiotic agents; Z91.018 Allergy to other foods; Z79.84 Long term (current) use of oral hypoglycemic drugs; Z79.899 Other long term (current) drug therapy
CPT/HCPCS: 99282

== ENCOUNTER 2019-03-15 06:43 | Day surgery (SDC) | payer MEDICARE, OTHER ==
[~2019-03-15 06:43] MED LIST: Lactated Ringers 1,000 ML IV SCH
[2019-03-15] MEDS ORDERED: Midazolam 1 MG/ML 2 ML SDV ONE (07:18)
[2019-03-15] MEDS ORDERED: Lidocaine 2% 5 ML SDV ONE (07:18)
[2019-03-15] MEDS ORDERED: Propofol 200 MG/20 ML SDV ONE (07:18)
--- NOTE | 2019-03-15 07:22 | PCM.PREANE ---
Preanesthetic Assessment - Anesthesia/Transfusion/Family Hx Anesthesia History: Prior Anesthesia Without Reaction Other Type of Anesthesia Reaction Comment: Denies any known problems in past, reports will refuse any blood transfusio Family History of Anesthesia Reaction: No Transfusion History: No Prior Transfusion(s) Intubation History: Unknown - Review of Systems General: No Symptoms Pulmonary: No Symptoms Cardiovascular: No Symptoms Gastrointestinal: No Symptoms, Other (anemia, family h/o colon cancer (brother)) Neurological: No Symptoms Other: Reports: None - Physical Assessment NPO Status Date: 03/15/19 NPO Status Time: 05:00 Vital Signs: Last Vital Signs Temp 36.3 C 03/15/19 07:00 Pulse 73 03/15/19 07:00 Resp 16 03/15/19 07:00 BP 155/72 H 03/15/19 07:00 Pulse Ox 96 03/15/19 07:00 Height: 5 ft 11 in Weight: 99.337 kg ASA Class: 3 Mental Status: Alert & Oriented x3 Airway Class: Mallampati = 2 Dentition: Reports: Dentures (upper and lower) Thyro-Mental Finger Breadths: 3 Mouth Opening Finger Breadths: 3 ROM/Head Extension: Limited/Partial Lungs: Clear to Auscultation, Normal Respiratory Effort, Decreased Breath Sounds Cardiovascular: Regular Rate, Regular Rhythm - Lab Values: Laboratory Last Values POC Glucose 106 mg/dL (60-110) 03/15/19 07:03 - Allergies Allergies/Adverse Reactions: Allergies Allergy/AdvReac Type Severity Reaction Status Date / Time amoxicillin [Amoxicillin] Allergy Stomach Verified 03/10/19 09:20 Upset Mushrooms Allergy Stomach Uncoded 10/05/18 19:44 Upset - Blood Blood Available: No - Anesthesia Plan Pre-Op Medication Ordered: None - Acknowledgements Anesthesia Type Planned: MAC Pt an Appropriate Candidate for the Planned Anesthesia: Yes Alternatives and Risks of Anesthesia Discussed w Pt/Guardian: Yes Pt/Guardian Understands and Agrees with Anesthesia Plan: Yes PreAnesthesia Questionnaire HEENT History: Reports: Hard of Hearing, Impaired Vision Other HEENT History: wears glasses, has upper and lower dentures, has bilateral hearing aides Cardiovascular History: Reports: Aneurysm, Heart Murmur, High Cholesterol, Hypertension Respiratory History: Reports: Asthma, SOB Other Respiratory History: had sleep apnea before gastric bypass...not now, SOB at times lasr couple of months (may be due to anemia) Gastrointestinal History: Other Gastrointestinal History: takes omeprazole daily due to gastric bypass Genitourinary History: Reports: Renal Calculus Musculoskeletal History: Reports: Fracture Other Musculoskeletal History: bilateral wrists Neurological History: Reports: None Psychiatric History: Reports: Anxiety, Depression, Other (See Below) ( claustrophobia, tolerates face mask) Endocrine/Metabolic History: Reports: Diabetes, Type II, Obesity/BMI 30+ Hematologic History: Reports: Anemia Immunologic History: Reports: None Oncologic (Cancer) History: Reports: None Dermatologic History: Reports: None - Infectious Disease History Infectious Disease History: Reports: Chicken Pox, Measles, Mumps, Shingles - Past Surgical History Head Surgeries/Procedures: Reports: None HEENT Surgical History: Reports: None Cardiovascular Surgical History: Reports: AAA Repair Other Cardiovascular Surgeries/Procedures: aortic stent, Respiratory Surgical History: Reports: None GI Surgical History: Reports: Bariatric Procedure, Colonoscopy (4 or 5, family h /o colon cancer) Male Surgical History: Reports: Kidney Stone Extraction Endocrine Surgical History: Reports: None Neurological Surgical History: Reports: C-Spine, Lumbar Spine Other Neurological Surgeries/Procedures: neck and back surgery Musculoskeletal Surgical History: Reports: Amputation, Knee Replacement Other Musculoskeletal Surgeries/Procedures:: amputation big toe-rt foot, L2,L4, L5 2 screws in back, vicky TKA Oncologic Surgical History: Reports: None Dermatological Surgical History: Reports: None - SUBSTANCE USE Smoking Status *Q: Former Smoker Tobacco Use Within Last Twelve Months: No - HOME MEDS Home Medications: Home Meds metFORMIN [Glucophage] 500 mg PO DAILY 05/25/14 [History] Lovastatin 40 mg PO DAILY 02/14/16 [History] Omeprazole 20 mg PO DAILY 02/14/16 [History] Citalopram [Citalopram HBr] 20 mg PO DAILY 10/05/18 [History] Sildenafil [Revatio] 1 - 3 tab PO ASDIRECTED PRN 10/05/18 [History] amLODIPine Besylate [Amlodipine Besylate] 5 mg PO DAILY 10/05/18 [History] traZODone HCl [Trazodone HCl] 3 tab PO BEDTIME 10/05/18 [History] Albuterol/Ipratropium [Combivent Respimat] 1 puff INH ASDIRECTED PRN 03/10/19 [ History] Calcium Lactate 2 tab PO BID 03/10/19 [History] Lisinopril 5 mg PO DAILY 03/10/19 [History] Melatonin 5 tab PO BEDTIME 03/10/19 [History] - CURRENT (IN HOUSE) MEDS Current Meds: Current Medications Lactated Ringer's (Ringers, Lactated) 1,000 mls @ 125 mls/hr IV ASDIRECTED MISTI
[2019-03-15] MEDS ORDERED: Levofloxacin/Dextrose 5%-Water 750 MG in Premix Bag 1 BAG IV ONE (07:57)
--- NOTE | 2019-03-15 08:29 | PCM.OPNOTE ---
- General Post-Op/Procedure Note Date of Surgery/Procedure: 03/15/19 Operative Procedure(s): colonoscopy Findings: see dict [id number] Pre Op Diagnosis: anemia and change in bowel habits Post-Op Diagnosis: diverticulosis Anesthesia Technique: Moderate Sedation Primary Surgeon: Zenon Hayden Complications: None Condition: Good
--- NOTE | 2019-03-15 09:13 | PCM48HPAN ---
Post Anesthesia Note - EVALUATION WITHIN 48HRS OF ANESTHETIC Vital Signs in Normal Range: Yes Patient Participated in Evaluation: Yes Respiratory Function Stable: Yes Airway Patent: Yes Cardiovascular Function Stable: Yes Hydration Status Stable: Yes Pain Control Satisfactory: Yes Nausea and Vomiting Control Satisfactory: Yes Mental Status Recovered: Yes Vital Signs: Last Vital Signs Temp 36.3 C 03/15/19 09:00 Pulse 67 03/15/19 09:00 Resp 16 03/15/19 09:00 BP 151/73 H 03/15/19 09:00 Pulse Ox 98 03/15/19 09:00 - COMMENTS/OBSERVATIONS Free Text/Narrative:: no anesthesia problems
--- NOTE | 2019-03-15 09:14 | PCM.POSTAN ---
POST ANESTHESIA ASSESSMENT - MENTAL STATUS Mental Status: Alert, Oriented - VITAL SIGNS Vital Signs: Last Vital Signs Temp 36.3 C 03/15/19 09:00 Pulse 67 03/15/19 09:00 Resp 16 03/15/19 09:00 BP 151/73 H 03/15/19 09:00 Pulse Ox 98 03/15/19 09:00 - RESPIRATORY Respiratory Status: Respiratory Rate WNL, Airway Patent, O2 Saturation Stable - CARDIOVASCULAR CV Status: Pulse Rate WNL, Blood Pressure Stable - GASTROINTESTINAL GI Status: No Symptoms - PAIN Pain Score: 0 - POST OP HYDRATION Hydration Status: Adequate & Stable - OBSERVATIONS Free Text/Narrative:: no anesthesia problems
[2019-03-15 10:03] VITALS: BP 153/70
--- NOTE | 2019-03-15 11:05 | OR ---
SURGEON: Zenon Hayden MD DATE OF PROCEDURE: 03/15/2019 PREOPERATIVE DIAGNOSES: Anemic and change in bowel habit. POSTOPERATIVE DIAGNOSIS: Diverticulosis. PROCEDURE PERFORMED: Colonoscopy. PRIMARY SURGEON: Zenon Hayden MD. COMPLICATIONS: None. DESCRIPTION OF PROCEDURE: The patient was taken to the endoscopy room. A time out was called, patient identified, and procedure identified. Diprivan was then administrated. Patient went from awake to sleep, hearing doctor talking or door closing is normal. Perineum inspection and digital examination were then performed. A well- lubricated colonoscope was gently inserted through the rectum, advanced past the rectosigmoid junction, the descending colon, splenic flexure, transverse colon, hepatic flexure, ascending colon, arrived to the cecum. Cecum was identified as dictated in the finding. Then the scope was carefully withdrawn while attention was paid to the mucosal surface for any abnormality. Air will be sucked out during the scope withdrawal. At the rectum, retroflexed to examine any rectal diseases, fistula or hemorrhoids. Patient tolerated procedure well. There were no intraoperative complications, and Dr. Hayden was present throughout the whole procedure. FINDINGS: 1. The patient is easily sedated with GRISTMILL OPERATOR and Diprivan, the patient is soundly snoring. Prior to colonoscopy, Levaquin 750 IV was given. The patient has several prostheses in the body. 2. Bowel prep is average to a bit below average. Large amount of opaque liquid stool and a compromised study, however, is easily done away with irrigation. 3. Colon rather straightforward and cecum indicated by ileocecal fold, one-to- one indentation, appendiceal orifice. Light emittance is not observed because of body habitus, and the ScopeGuide was pointing south. Mucosa examined upon scope pulling out with intermittent irrigation. The patient does not have polyp. The patient has a large amount of diverticulosis in the left colon. No signs or symptoms of diverticulitis. No inflammation, stricture, AV malformation, bleeding, ulceration, none of those. The patient has mild internal hemorrhoids, no external hemorrhoids. The patient would benefit from repeat colonoscopy 10 years from today, that will make him 78 years old, and he should be on an as-needed basis or if clinically indicated otherwise. ALEJO / MAYA /[id number]
== END 2019-03-15 09:22 | disposition home or self-care (01) ==
LOC: MW.SDS 06:43
PROVIDERS: ATTEND Surgery
DX: D64.9 Anemia, unspecified (principal); K57.30 Diverticulosis of large intestine without perforation or abscess without bleeding; K64.8 Other hemorrhoids; M47.22 Other spondylosis with radiculopathy, cervical region; M17.12 Unilateral primary osteoarthritis, left knee; E11.9 Type 2 diabetes mellitus without complications; F32.9 Major depressive disorder, single episode, unspecified; Z88.0 Allergy status to penicillin; Z91.018 Allergy to other foods; Z79.899 Other long term (current) drug therapy; Z79.84 Long term (current) use of oral hypoglycemic drugs; Z80.0 Family history of malignant neoplasm of digestive organs; Z87.891 Personal history of nicotine dependence
CPT/HCPCS: 45378; 82962; J2001; J2250; J2704; J7120

== ENCOUNTER 2019-04-28 09:49 | Emergency (ER) | payer MEDICARE, OTHER ==
[2019-04-28 10:04] VITALS: BP 130/49; PULSE 89
--- NOTE | 2019-04-28 10:07 | EDM.PDOC ---
ED HPI GENERAL MEDICAL PROBLEM - General Chief Complaint: Lower Extremity Injury/Pain Stated Complaint: FOOT INJURY Time Seen by Provider: 04/28/19 09:58 Source of Information: Reports: Patient History Limitations: Reports: No Limitations - History of Present Illness INITIAL COMMENTS - FREE TEXT/NARRATIVE: HISTORY AND PHYSICAL: History of present illness: Patient is a 68-year-old male presents to the ED today with concern of left ankle injury that occurred 1 week ago. Patient states he was helping his son take off the lid for the hot tub when he had stepped off the cement slab and twisted his left ankle. Patient states he did not fall and he was able to catch himself. Patient states since then he's been able to walk on the ankle but does have some pain with doing so. Patient states he's been taking [id number] ibuprofen and Tylenol as some relief of symptoms. He denies any prior injury to the ankle or any other symptoms or concerns at this time. Patient denies fever, chills, chest pain, shortness of breath, or cough. Denies headache, neck stiff ness, change in vision, syncope, or near syncope. Denies nausea, vomiting, abdominal pain, diarrhea, constipation, or dysuria. Has not noted any blood in urine or stool. Patient has been eating and drinking appropriately. Review of systems: As per history of present illness and below otherwise all systems reviewed and negative. Past medical history: As per history of present illness and as reviewed below otherwise noncontributory. Surgical history: As per history of present illness and as reviewed below otherwise noncontributory. Social history: See social history for further information Family history: As per history of present illness and as reviewed below otherwise noncontributory. Physical exam: General: Patient is alert, oriented, and in no acute distress. Patient sitting comfortably on exam table. HEENT: Atraumatic, normocephalic, pupils equal and reactive bilaterally, negative for conjunctival pallor or scleral icterus, mucous membranes moist, TMs normal bilaterally, throat clear, neck supple, nontender, trachea midline. No drooling or trismus noted. No meningeal signs. No hot potato voice noted. Lungs: Clear to auscultation, breath sounds equal bilaterally, chest nontender. Heart: S1S2, regular rate and rhythm without overt murmur Abdomen: Soft, nondistended, nontender. Negative for masses or hepatosplenomegaly. Negative for costovertebral tenderness. Pelvis: Stable nontender. Genitourinary: Deferred. Rectal: Deferred. Skin: Intact, warm, dry. No lesions or rashes noted. Extremities: Negative for cords or calf pain. Neurovascular unremarkable. Left ankle is moderately edematous with mild to moderate pain with palpation of the medial and lateral malleolus. Patient does have full range of motion of the complete left extremity but does have pain with range of motion of the left ankle. Dorsalis pedis and posterior tibial pulses are grossly intact of the left lower extremity with capillary refill less than 2 seconds. Neuro: Awake, alert, oriented. Cranial nerves II through XII unremarkable. Cerebellum unremarkable. Motor and sensory unremarkable throughout. Exam nonfocal. Notes: Patient eloped the ED prior to discharge. Diagnostics: Left foot and ankle x-ray Therapeutics: None Prescription: None Impression: Left ankle injury Eloped from the ED Plan: 1. Patient eloped from the ED prior to discharge Definitive disposition and diagnosis as appropriate pending reevaluation and review of above. Left Ankle Pain Score (Numeric/FACES): 10 - Related Data Allergies Allergy/AdvReac Type Severity Reaction Status Date / Time amoxicillin [Amoxicillin] Allergy Stomach Verified 04/28/19 10:00 Upset Mushrooms Allergy Stomach Uncoded 04/28/19 10:00 Upset Home Meds: Home Meds metFORMIN [Glucophage] 500 mg PO DAILY 05/25/14 [History] Lovastatin 40 mg PO DAILY 02/14/16 [History] Omeprazole 20 mg PO DAILY 02/14/16 [History] Citalopram [Citalopram HBr] 20 mg PO DAILY 10/05/18 [History] amLODIPine Besylate [Amlodipine Besylate] 5 mg PO DAILY 10/05/18 [History] traZODone HCl [Trazodone HCl] 3 tab PO BEDTIME 10/05/18 [History] Albuterol/Ipratropium [Combivent Respimat] 1 puff INH ASDIRECTED PRN 03/10/19 [ History] Calcium Lactate 2 tab PO BID 03/10/19 [History] Lisinopril 5 mg PO DAILY 03/10/19 [History] Melatonin 5 tab PO BEDTIME 03/10/19 [History] Past Medical History HEENT History: Reports: Hard of Hearing, Impaired Vision Other HEENT History: wears glasses, has upper and lower dentures, has bilateral hearing aides Cardiovascular History: Reports: Aneurysm, High Cholesterol, Hypertension Respiratory History: Reports: Asthma Other Respiratory History: had sleep apnea before gastric bypass...not now, SOB at times lasr couple of months (may be due to anemia) Gastrointestinal History: Genitourinary History: Reports: Renal Calculus Musculoskeletal History: Reports: Back Pain, Chronic, Fracture Other Musculoskeletal History: bilateral wrists Neurological History: Reports: Other (See Below) Other Neuro History: had a "black out" the end of October, will be tested for seizures Psychiatric History: Reports: Anxiety, Depression, Other (See Below) ( claustrophobia, tolerates face mask) Other Psychiatric History: states he take "anger medicine" Endocrine/Metabolic History: Reports: Diabetes, Type II, Obesity/BMI 30+ Hematologic History: Reports: None Immunologic History: Reports: None Oncologic (Cancer) History: Reports: None Dermatologic History: Reports: None - Infectious Disease History Infectious Disease History: Reports: Chicken Pox, Measles, Mumps, Shingles - Past Surgical History Other Cardiovascular Surgeries/Procedures: aortic stent placed 6 years ago Neurological Surgical History: Reports: None Other Musculoskeletal Surgeries/Procedures:: L2,L4, L5 2 screws in back. Social & Family History - Family History Family Medical History: Noncontributory - Caffeine Use Caffeine Use: Reports: Coffee Review of Systems - Review of Systems Review Of Systems: ROS reveals no pertinent complaints other than HPI. ED EXAM, GENERAL - Physical Exam Exam: See Below (See dictation) Course - Vital Signs Last Recorded V/S: Last Vital Signs Temp 97.3 F 04/28/19 10:01 Pulse 89 04/28/19 10:01 Resp 16 04/28/19 10:01 BP 130/49 L 04/28/19 10:01 Pulse Ox 95 04/28/19 10:01 Departure - Departure Time of Disposition: 11:44 Disposition: Eloped 07 Clinical Impression: Eloped from emergency department Ankle injury Qualifiers: Encounter type: initial encounter Laterality: left Qualified Code(s): S99.912A - Unspecified injury of left ankle, initial encounter - Discharge Information Referrals: Liam Saldivar MD [Primary Care Provider] - Forms: ED Department Discharge Additional Instructions: Patient did not receive discharge instructions as he eloped from the ED.
--- NOTE | 2019-04-28 11:18 | CR ---
Left foot: Two views of the left foot were obtained. Comparison: No previous study. Plantar spur is noted. Minimal spur at the attachment of the Achilles tendon to the calcaneus. Mild vascular calcification is seen. Slight deformity within the proximal fifth metatarsal is noted compatible with old injury. No definite fracture or other abnormality is seen on this limited two-view study. Impression: 1. Findings as described above. 2. Nothing acute is definitely appreciated on limited two-view left foot study. Diagnostic code #2 MTDD
--- NOTE | 2019-04-28 11:37 | CR ---
Left ankle: Three views left ankle were obtained. Comparison: No previous ankle study. Ankle mortise is symmetric. Calcaneal spurs are again noted. Vascular calcification is seen. No acute fracture or other bony abnormality is appreciated. Impression: 1. Calcaneal spurs and vascular calcification. 2. Nothing acute is appreciated on left ankle exam. Diagnostic code #2 MTDD
== END 2019-04-28 11:46 | disposition left against medical advice (07) ==
LOC: MW.ED 09:49
DX: S99.912A Unspecified injury of left ankle, initial encounter (principal); I10 Essential (primary) hypertension; E11.9 Type 2 diabetes mellitus without complications; E78.00 Pure hypercholesterolemia, unspecified; J45.909 Unspecified asthma, uncomplicated; F41.9 Anxiety disorder, unspecified; F32.9 Major depressive disorder, single episode, unspecified; E66.9 Obesity, unspecified; Z68.32 Body mass index [BMI] 32.0-32.9, adult; Z88.1 Allergy status to other antibiotic agents; Z91.018 Allergy to other foods; Z79.84 Long term (current) use of oral hypoglycemic drugs; Z79.899 Other long term (current) drug therapy; X50.1XXA Overexertion from prolonged static or awkward postures, initial encounter
CPT/HCPCS: 73610-26-LT; 73610-LT; 73620-26-LT; 73620-LT; 99283-25

== ENCOUNTER 2020-04-07 22:02 | Emergency (ER) | payer MEDICARE, OTHER ==
[2020-04-07 23:08] VITALS: BP 163/93; PULSE 70
[2020-04-07] MEDS ORDERED: Octyl 2-Cyanoacrylate 1 Tube TOP ONE (23:29)
[2020-04-07] MEDS ORDERED: Octyl 2-Cyanoacrylate 1 Tube ONE (23:30)
--- NOTE | 2020-04-07 23:33 | EDM.PDOC ---
ED HPI GENERAL MEDICAL PROBLEM - General Chief Complaint: Laceration Stated Complaint: LT MIDDLE FINGER LACERATION Time Seen by Provider: 04/07/20 23:24 Source of Information: Reports: Patient History Limitations: Reports: No Limitations - History of Present Illness INITIAL COMMENTS - FREE TEXT/NARRATIVE: History of present illness: [Patient is 69-year-old male presenting with a laceration to the palmar surface of his left middle finger over the distal fat pad region. He states that he was eating a slicer and sliced that portion of his finger. Sustained an L-shaped laceration slice. This happened earlier this afternoon. He taped it up, has been holding pressure, but thought he should come in and get checked out. States his last tetanus shot was within the last 5 years. Denies any other injuries or complaints.] Review of systems: As per history of present illness and below otherwise all systems reviewed and negative. Past medical history: As per history of present illness and as reviewed below otherwise noncontributory. Surgical history: As per history of present illness and as reviewed below otherwise noncontributory. Social history: No reported history of drug or alcohol abuse. Family history: As per history of present illness and as reviewed below otherwise noncontributory. Physical exam: General: Awake, alert, no acute distress, A&O X3. HEENT: Atraumatic, normocephalic, pupils reactive, negative for conjunctival pallor or scleral icterus, mucous membranes moist, throat clear, neck supple, nontender, trachea midline. Lungs: Clear to auscultation, breath sounds equal bilaterally, chest nontender. Heart: RRR, normal S1S2, no JVD. Abdomen: Soft, nondistended, nontender. Negative for masses or hepatosplenomegaly. Negative for costovertebral tenderness. Pelvis: Stable nontender. Genitourinary: Deferred. Rectal: Deferred. SKIN: See laceration note for complete details. L-shaped laceration measuring in total 2.5 cm on palmar surface of the fat pad of the left middle finger. Extremities: no edema, Neurovascular unremarkable. Neuro: Motor and sensory grossly intact throughout. Exam nonfocal. Diagnostics: [] Therapeutics: [] Impression: [] Plan: [] Definitive disposition and diagnosis as appropriate pending reevaluation and review of above. Left Finger-Middle Pain Score (Numeric/FACES): 3 - Related Data Allergies Allergy/AdvReac Type Severity Reaction Status Date / Time amoxicillin [Amoxicillin] Allergy Stomach Verified 04/07/20 23:08 Upset Mushrooms Allergy Stomach Uncoded 04/07/20 23:08 Upset Home Meds: Home Meds metFORMIN [Glucophage] 500 mg PO DAILY 05/25/14 [History] Lovastatin 40 mg PO DAILY 02/14/16 [History] Omeprazole 20 mg PO DAILY 02/14/16 [History] Citalopram [Citalopram HBr] 20 mg PO DAILY 10/05/18 [History] amLODIPine Besylate [Amlodipine Besylate] 5 mg PO DAILY 10/05/18 [History] traZODone HCl [Trazodone HCl] 3 tab PO BEDTIME 10/05/18 [History] Albuterol/Ipratropium [Combivent Respimat] 1 puff INH ASDIRECTED PRN 03/10/19 [History] Calcium Lactate 2 tab PO BID 03/10/19 [History] Melatonin 5 tab PO BEDTIME 03/10/19 [History] lisinopriL [Lisinopril] 5 mg PO DAILY 03/10/19 [History] Past Medical History HEENT History: Reports: Hard of Hearing, Impaired Vision Other HEENT History: wears glasses, has upper and lower dentures, has bilateral hearing aides Cardiovascular History: Reports: Aneurysm, High Cholesterol, Hypertension Respiratory History: Reports: Asthma Other Respiratory History: had sleep apnea before gastric bypass...not now, SOB at times lasr couple of months (may be due to anemia) Gastrointestinal History: Other Gastrointestinal History: takes omeprazole daily due to gastric bypass Genitourinary History: Reports: Renal Calculus Musculoskeletal History: Reports: Back Pain, Chronic, Fracture Other Musculoskeletal History: bilateral wrists Neurological History: Reports: Other (See Below) Other Neuro History: had a "black out" the end of October, will be tested for seizures Psychiatric History: Reports: Anxiety, Depression, Other (See Below) (claustrophobia, tolerates face mask) Other Psychiatric History: states he take "anger medicine" Endocrine/Metabolic History: Reports: Diabetes, Type II, Obesity/BMI 30+ Hematologic History: Reports: None Immunologic History: Reports: None Oncologic (Cancer) History: Reports: None Dermatologic History: Reports: None - Infectious Disease History Infectious Disease History: Reports: Chicken Pox, Measles, Mumps, Shingles - Past Surgical History Other Cardiovascular Surgeries/Procedures: aortic stent placed 6 years ago Neurological Surgical History: Reports: None Other Musculoskeletal Surgeries/Procedures:: L2,L4, L5 2 screws in back. Social & Family History - Family History Family Medical History: Noncontributory - Tobacco Use Smoking Status *Q: Never Smoker - Caffeine Use Caffeine Use: Reports: Coffee - Recreational Drug Use Recreational Drug Use: No ED ROS GENERAL - Review of Systems Review Of Systems: Comprehensive ROS is negative, except as noted in HPI. ED EXAM, SKIN/RASH Exam: See Below ED SKIN PROCEDURES - Laceration/Wound Repair Left Ventral Digit - 3rd (Middle) Appearance: Superficial, Clean, Other (L shaped) Distal NVT: Neuro & Vascular Intact, No Tendon Injury Saline Irrigation (cc's): 50 Exploration/Debridement/Repair: Wound Explored, Explored to Base, No Foreign Material Found Closed with: Dermabond Lac/Wound length In cm: 2.5 Sterile Dressing Applied: None Tetanus Status Addressed: Yes Complications: No Course - Vital Signs Text/Narrative:: Patient tolerated procedure well. Achieved good alignment of the tissue with Dermabond, bleeding was controlled prior to application, patient encouraged to avoid any trauma or injuries involving the finger in the coming days. Return precautions provided otherwise he is well-appearing and stable at time of discharge. Last Recorded V/S: Last Vital Signs Temp 35.9 C L 04/07/20 23:05 Pulse 70 04/07/20 23:05 Resp 14 04/07/20 23:05 BP 163/93 H 04/07/20 23:05 Pulse Ox 94 L 04/07/20 23:05 - Orders/Labs/Meds Meds: Medications Discontinued Medications Generic Name Dose Route Start Last Admin Trade Name Agapito PRN Reason Stop Dose Admin Octyl Cyanoacrylate 1 applic 04/07/20 23:29 Dermabond Advance TOP 04/07/20 23:30 ONETIME ONE Octyl Cyanoacrylate Confirm 04/07/20 23:30 Dermabond Advance Administered 04/07/20 23:31 Dose 1 applic .ROUTE .STK-MED ONE Departure - Departure Time of Disposition: 23:38 Disposition: Home, Self-Care 01 Condition: Good Clinical Impression: Finger laceration - Discharge Information Instructions: Laceration Care, Adult Referrals: Liam Saldivar MD [Primary Care Provider] - Forms: ED Department Discharge Additional Instructions: Follow-up with primary care doctor. Take all medications as previously prescribed. Return to the ER with any new or worsening symptoms. Sepsis Event Note (ED) - Evaluation Sepsis Screening Result: No Definite Risk - Focused Exam Vital Signs: Vital Signs Temp Pulse Resp BP Pulse Ox 04/07/20 23:05 35.9 C L 70 14 163/93 H 94 L
== END 2020-04-07 23:45 | disposition home or self-care (01) ==
LOC: MW.ED 22:02
DX: S61.213A Laceration without foreign body of left middle finger without damage to nail, initial encounter (principal); I10 Essential (primary) hypertension; E11.9 Type 2 diabetes mellitus without complications; E66.9 Obesity, unspecified; J45.909 Unspecified asthma, uncomplicated; E78.00 Pure hypercholesterolemia, unspecified; F41.9 Anxiety disorder, unspecified; F32.9 Major depressive disorder, single episode, unspecified; Z88.0 Allergy status to penicillin; Z91.018 Allergy to other foods; Z79.899 Other long term (current) drug therapy; Z79.84 Long term (current) use of oral hypoglycemic drugs; Z68.29 Body mass index [BMI] 29.0-29.9, adult; W26.8XXA Contact with other sharp object(s), not elsewhere classified, initial encounter
CPT/HCPCS: 12001; 99282; A9270

== ENCOUNTER 2022-05-30 14:57 | Emergency (ER) | payer MEDICARE, OTHER ==
[2022-05-30] MEDS ORDERED: Lidocaine 1% PF 2 ML SDV INJECT ONE (15:28)
[2022-05-30] MEDS ORDERED: Diphtheria,Pertussis(Acell),Tetanus Vaccine 0.5 ML Syringe IM ONE (15:28)
[2022-05-30 15:42] VITALS: BP 149/85; PULSE 78
== END 2022-05-30 16:23 | disposition home or self-care (01) ==
LOC: MW.ED 14:57
DX: S61.217A Laceration without foreign body of left little finger without damage to nail, initial encounter (principal); I10 Essential (primary) hypertension; E78.00 Pure hypercholesterolemia, unspecified; J45.909 Unspecified asthma, uncomplicated; E11.9 Type 2 diabetes mellitus without complications; E66.9 Obesity, unspecified; Z68.32 Body mass index [BMI] 32.0-32.9, adult; Z23 Encounter for immunization; Z88.0 Allergy status to penicillin; Z91.018 Allergy to other foods; Z79.84 Long term (current) use of oral hypoglycemic drugs; Z79.899 Other long term (current) drug therapy; W26.0XXA Contact with knife, initial encounter
CPT/HCPCS: 12001; 90471; 90715; 99282-25

== ENCOUNTER 2023-03-17 12:24 | Emergency (ER) | payer MEDICARE, OTHER ==
[2023-03-17 12:52] LABS: BASOPHILS PERCENT AUTO 0.2 % (0.0-1.5); EOSINOPHILS PERCENT AUTO 0.1 % (0.0-7.0); HEMATOCRIT 38.2 % (38.0-50.0); HEMOGLOBIN 11.9 g/dL (13.0-17.0); LYMPHOCYTES ABSOLUTE AUTO 0.8 K/uL (0.6-2.4); LYMPHOCYTES PERCENT AUTO 6.8 % (16.0-40.0); MEAN CORPUSCULAR HEMOGLOBIN 28.1 pg (27.0-32.0); MEAN CORPUSCULAR HGB CONC 31.2 g/dL (31.0-37.0); MEAN CORPUSCULAR VOLUME 90.1 fL (80.0-98.0); NEUTROPHILS ABSOLUTE AUTO 9.2 K/uL (1.4-5.7); NEUTROPHILS PERCENT AUTO 83.9 % (48.0-80.0); NRBC ABSOLUTE 0 K/uL; PLATELET COUNT,PLT 221 K/uL (150-400); RED BLOOD CELL COUNT 4.24 M/uL (4.50-5.90)
[2023-03-17 13:04] LABS: APPEARANCE,URINE CLEAR; BILIRUBIN,URINE NEGATIVE (NEGATIVE); COLOR,URINE YELLOW; GLUCOSE,URINE 250 mg/dL (NEGATIVE); KETONES,URINE TRACE mg/dL (NEGATIVE); LEUKOCYTE ESTERASE,URINE NEGATIVE (NEGATIVE); NITRITE,URINE NEGATIVE (NEGATIVE); OCCULT BLOOD,URINE NEGATIVE (NEGATIVE); PROTEIN,URINE NEGATIVE (NEGATIVE); UROBILINOGEN,URINE 0.2 EU/dL (<2.0)
[2023-03-17 13:22] LABS: CALCIUM 9.1 mg/dL (8.5-10.1); CARBON DIOXIDE,CO2 27.6 mmol/L (21.0-32.0); CREATININE 1.3 mg/dL (0.8-1.3); EST CRCL DRUG DOSING (CG) 55.51 mL/min
[2023-03-17 13:33] LABS: CORONAVIRUS COVID-19 NAA NEGATIVE (NEGATIVE); INFLUENZA A NAA NEGATIVE (NEGATIVE); INFLUENZA B NAA NEGATIVE (NEGATIVE)
[2023-03-17 13:57] LABS: INR 1.05 (0.86-1.11)
[2023-03-17 17:26] VITALS: BP 138/69; PULSE 68
== END 2023-03-17 17:26 | disposition home or self-care (01) ==
LOC: MW.ED 12:24
DX: S83.90XA Sprain of unspecified site of unspecified knee, initial encounter (principal); I95.1 Orthostatic hypotension; E86.0 Dehydration; E78.00 Pure hypercholesterolemia, unspecified; I10 Essential (primary) hypertension; E11.9 Type 2 diabetes mellitus without complications; E66.9 Obesity, unspecified; Z88.0 Allergy status to penicillin; Z91.018 Allergy to other foods; Z79.84 Long term (current) use of oral hypoglycemic drugs; Z68.31 Body mass index [BMI] 31.0-31.9, adult; Z79.899 Other long term (current) drug therapy; Z87.891 Personal history of nicotine dependence; Z20.822 Contact with and (suspected) exposure to COVID-19; W19.XXXA Unspecified fall, initial encounter
CPT/HCPCS: 0240U; 36415; 70450; 71045; 72125; 73562; 80048; 81003; 84484; 85025; 85610; 93005; 99285; 93010; 99283

== ENCOUNTER 2023-08-07 14:43 | Emergency (ER) | payer MEDICARE, OTHER ==
[2023-08-07] MEDS ORDERED: Lactated Ringers 1,000 ML IV ONE (15:01)
[2023-08-07 15:32] LABS: BASOPHILS ABSOLUTE AUTO 0.02 K/uL (0.00-0.20); BASOPHILS PERCENT AUTO 0.3 % (0.0-1.0); EOSINOPHILS ABSOLUTE AUTO 0.11 K/uL (0.00-0.45); EOSINOPHILS PERCENT AUTO 1.8 % (0.0-6.0); HEMATOCRIT 19.2 % (42.0-52.0); HEMOGLOBIN 6.1 g/dL (14.0-18.0); IMMATURE GRAN ABSOLUTE AUTO 0.01 K/uL (0.00-0.05); IMMATURE GRAN PERCENT AUTO 0.2 % (0.0-0.4); LYMPHOCYTES ABSOLUTE AUTO 1.04 K/uL (1.00-4.80); LYMPHOCYTES PERCENT AUTO 17.3 % (24.0-44.0); MEAN CORPUSCULAR HEMOGLOBIN 28.9 pg (28.0-32.0); MEAN CORPUSCULAR HGB CONC 31.8 g/dL (32.0-36.0); MEAN PLATELET VOLUME 10.1 fL (9.4-12.4); MONOCYTES PERCENT AUTO 8.3 % (0.0-8.0); NEUTROPHILS ABSOLUTE AUTO 4.34 K/uL (1.80-7.70); NEUTROPHILS PERCENT AUTO 72.1 % (41.0-71.0); PLATELET COUNT,PLT 246 K/uL (150-400); RED BLOOD CELL COUNT 2.11 M/uL (4.52-5.90); WHITE BLOOD CELL COUNT,WBC 6.02 K/uL (3.9-11.3)
[2023-08-07 15:50] LABS: INR 1.21 (0.86-1.11); PTT,PARTIAL THROMBOPLSTIN TIME 30.8 SEC (23.9-30.7)
[2023-08-07] MEDS ORDERED: Pantoprazole 80 MG in Sodium Chloride 0.9% 10 ML IVPUSH ONE (16:05)
[2023-08-07 16:11] LABS: A/G RATIO 0.7 (0.9-1.6); ALBUMIN 2.1 g/dL (3.4-5.0); BILIRUBIN TOTAL 0.2 mg/dL (0.2-1.0); CALCIUM 8.1 mg/dL (8.5-10.1); CARBON DIOXIDE,CO2 26.3 mmol/L (21.0-32.0); CREATININE 1.4 mg/dL (0.8-1.3); EST CRCL DRUG DOSING (CG) 50.8 mL/min; MAGNESIUM 1.9 mg/dL (1.8-2.4); POTASSIUM,K 4.9 mmol/L (3.5-5.1); PROTEIN TOTAL,TP 5.2 g/dL (6.4-8.2); TSH ULTRASENSITIVE 0.31 uIU/mL (0.36-3.74)
[2023-08-07] MEDS ORDERED: Acetaminophen/HYDROcodone 325-10 MG Tab PO ONE (17:10)
[2023-08-07 19:05] VITALS: BP 152/87; PULSE 80
== END 2023-08-07 19:32 ==
LOC: MW.ED 14:43
DX: K92.2 Gastrointestinal hemorrhage, unspecified (principal); R55 Syncope and collapse; I35.0 Nonrheumatic aortic (valve) stenosis; E78.00 Pure hypercholesterolemia, unspecified; I10 Essential (primary) hypertension; E11.9 Type 2 diabetes mellitus without complications; E66.9 Obesity, unspecified; Z88.0 Allergy status to penicillin; Z68.28 Body mass index [BMI] 28.0-28.9, adult
CPT/HCPCS: 36415; 36430; 71045; 80053; 83735; 84439; 84443; 84484; 85025; 85610; 85730; 86850; 86900; 86901; 86920; 93005; 96361; 96374; 99285; A9270; C9113; J3490; J7120; P9016; 93010; 99291

== ENCOUNTER 2024-03-05 15:08 | Inpatient (IN) | payer MEDICARE, OTHER ==
[2024-03-05 16:13] LABS: BASOPHILS ABSOLUTE AUTO 0.02 K/uL (0.00-0.20); BASOPHILS PERCENT AUTO 0.2 % (0.0-1.0); HEMATOCRIT 33.1 % (42.0-52.0); HEMOGLOBIN 10.8 g/dL (14.0-18.0); IMMATURE GRAN ABSOLUTE AUTO 0.05 K/uL (0.00-0.05); IMMATURE GRAN PERCENT AUTO 0.5 % (0.0-0.4); LYMPHOCYTES ABSOLUTE AUTO 0.36 K/uL (1.00-4.80); LYMPHOCYTES PERCENT AUTO 3.3 % (24.0-44.0); MEAN CORPUSCULAR HEMOGLOBIN 28.3 pg (28.0-32.0); MEAN CORPUSCULAR HGB CONC 32.6 g/dL (32.0-36.0); MEAN CORPUSCULAR VOLUME 86.9 fL (83.0-99.0); MEAN PLATELET VOLUME 9.8 fL (9.4-12.4); MONOCYTES ABSOLUTE AUTO 0.67 K/uL (0.00-0.80); MONOCYTES PERCENT AUTO 6.2 % (0.0-8.0); NEUTROPHILS ABSOLUTE AUTO 9.79 K/uL (1.80-7.70); NEUTROPHILS PERCENT AUTO 89.8 % (41.0-71.0); PLATELET COUNT,PLT 326 K/uL (150-400); RED BLOOD CELL COUNT 3.81 M/uL (4.52-5.90); WHITE BLOOD CELL COUNT,WBC 10.89 K/uL (3.9-11.3)
[2024-03-05] MEDS: Sodium Chloride 0.9% 1,000 ML IV ONE (16:13)
[2024-03-05 16:33] LABS: INR 1.3 (0.86-1.11); PTT,PARTIAL THROMBOPLSTIN TIME 33.6 SEC (23.9-30.7)
[2024-03-05 16:37] LABS: A/G RATIO 0.6 (0.9-1.6); ALBUMIN 2.8 g/dL (3.4-5.0); C-REACTIVE PROTEIN 13.85 mg/dL (<0.3); CALCIUM 8.7 mg/dL (8.5-10.1); CARBON DIOXIDE,CO2 28.5 mmol/L (21.0-32.0); CREATININE 1.4 mg/dL (0.8-1.3); EST CRCL DRUG DOSING (CG) 50.8 mL/min; POTASSIUM,K 4.3 mmol/L (3.5-5.1); PROTEIN TOTAL,TP 7.6 g/dL (6.4-8.2)
[2024-03-05 16:41] LABS: LACTIC ACID 1.1 mmol/L (0.4-2.0)
[2024-03-05 17:21] LABS: CORONAVIRUS COVID-19 NAA NEGATIVE (NEGATIVE); INFLUENZA A NAA NEGATIVE (NEGATIVE); INFLUENZA B NAA NEGATIVE (NEGATIVE); RESPIRATORY SYNCYTIAL VIR NAA NEGATIVE (NEGATIVE)
[2024-03-05 18:49] LABS: GLUCOSE,URINE NEGATIVE (NEGATIVE); KETONES,URINE 15 mg/dL (NEGATIVE); LEUKOCYTE ESTERASE,URINE NEGATIVE (NEGATIVE); NITRITE,URINE NEGATIVE (NEGATIVE); OCCULT BLOOD,URINE TRACE-INTACT (NEGATIVE); PROTEIN,URINE 100 mg/dL (NEGATIVE)
[2024-03-05 18:52] LABS: APPEARANCE,URINE SLT CLOUDY; BILIRUBIN,URINE SMALL (NEGATIVE); COLOR,URINE DARK YELLOW
[2024-03-05 18:54] LABS: AMORPHOUS SEDIMENT,URINE FEW (NEGATIVE); BACTERIA,URINE FEW (NEGATIVE); EPITHELIAL CELLS,URINE RARE (NONE-FEW); MUCUS,URINE OCCASIONAL (NONE-MOD); RBC,URINE 0-2 (0-2/HPF); WBC,URINE 0-1 (0-5/HPF)
[2024-03-05] MEDS ORDERED: Non-Formulary Medication 1 Each (Gabapentin 600 MG Tablet) PO PRN (20:22)
[2024-03-05] MEDS ORDERED: Polyethylene Glycol 3350 Powder 17 GM Packet PO PRN (20:26)
[2024-03-05] MEDS ORDERED: Ondansetron 4 MG/2 ML SDV IVPUSH PRN (20:26)
[2024-03-05] MEDS ORDERED: Albuterol/Ipratropium 3.0-0.5 MG/3 ML Neb Soln NEB PRN (20:26)
[2024-03-05] MEDS ORDERED: Melatonin 3 MG Tab PO PRN (20:26)
[2024-03-05] MEDS ORDERED: Acetaminophen 650 MG Supp RECTAL PRN (20:26)
[2024-03-05 21:10] LABS: HEMOGLOBIN A1C 7.3 %
[2024-03-05] MEDS: cefTRIAXone 2 GM in Sodium Chloride 0.9% 50 ML IV SCH ×2 (21:10→22:02)
[2024-03-05] MEDS: Pantoprazole 40 MG in Sodium Chloride 0.9% 10 ML IVPUSH SCH ×2 (21:10→22:00)
[2024-03-05 21:20] LABS: TSH ULTRASENSITIVE 0.32 uIU/mL (0.36-3.74)
[2024-03-05 21:37] LABS: T4 FREE 1.34 ng/dL (0.76-1.46)
[2024-03-05] MEDS: Acetaminophen 325 MG Tab PO PRN (21:59)
[2024-03-05] MEDS: Tiotropium Bromide 4 GM Inhalation Spray (2.5mcg/1 dose; 10 doses) INH SCH (22:00)
[2024-03-05] MEDS: Furosemide 20 MG/2 ML VIAL IVPUSH ONE (22:00)
[2024-03-06] MEDS: traZODone 50 MG Tab PO PRN (01:09)
[2024-03-06] MEDS ORDERED: Glucagon,Human Recombinant 1 MG Vial IM PRN (01:38)
[2024-03-06] MEDS ORDERED: 50% Dextrose in Water 50 ML Syringe IVPUSH PRN (01:38)
[2024-03-06] MEDS: VANCOmycin 2 GM/400 ML 2 GM in Premix Bag 1 BAG IV ONE (05:08)
[2024-03-06] MEDS: Piperacillin/Tazobactam 4.5 GM in Sodium Chloride 0.9% 100 ML IV ONE (06:20)
[2024-03-06 06:28] LABS: BASOPHILS ABSOLUTE AUTO 0.03 K/uL (0.00-0.20); BASOPHILS PERCENT AUTO 0.3 % (0.0-1.0); HEMATOCRIT 30.1 % (42.0-52.0); HEMOGLOBIN 9.6 g/dL (14.0-18.0); IMMATURE GRAN ABSOLUTE AUTO 0.07 K/uL (0.00-0.05); IMMATURE GRAN PERCENT AUTO 0.7 % (0.0-0.4); LYMPHOCYTES ABSOLUTE AUTO 0.24 K/uL (1.00-4.80); LYMPHOCYTES PERCENT AUTO 2.3 % (24.0-44.0); MEAN CORPUSCULAR HEMOGLOBIN 27.7 pg (28.0-32.0); MEAN CORPUSCULAR HGB CONC 31.9 g/dL (32.0-36.0); MEAN PLATELET VOLUME 10.1 fL (9.4-12.4); MONOCYTES ABSOLUTE AUTO 0.58 K/uL (0.00-0.80); MONOCYTES PERCENT AUTO 5.7 % (0.0-8.0); PLATELET COUNT,PLT 288 K/uL (150-400); RED BLOOD CELL COUNT 3.46 M/uL (4.52-5.90); WHITE BLOOD CELL COUNT,WBC 10.22 K/uL (3.9-11.3)
[2024-03-06 06:54] LABS: CALCIUM 8.4 mg/dL (8.5-10.1); CARBON DIOXIDE,CO2 27.7 mmol/L (21.0-32.0); CREATININE 1.2 mg/dL (0.8-1.3); EST CRCL DRUG DOSING (CG) 59.26 mL/min; MAGNESIUM 1.8 mg/dL (1.8-2.4); POTASSIUM,K 4.1 mmol/L (3.5-5.1)
[2024-03-06] MEDS: Tamsulosin 0.4 MG Cap.ER PO SCH (08:46)
[2024-03-06] MEDS: Gabapentin 300 MG Cap PO PRN (08:46)
[2024-03-06] MEDS: busPIRone 5 MG Tab PO SCH (08:47)
[2024-03-06] MEDS: atorvaSTATin 10 MG Tab PO SCH (08:47)
[2024-03-06] MEDS: amLODIPine 5 MG Tab PO SCH (08:48)
[2024-03-06] MEDS: Piperacillin/Tazobactam 4.5 GM in Sodium Chloride 0.9% 100 ML IV SCH (09:23)
[2024-03-06] MEDS: Insulin Aspart 100 Units/ML 3 ML Pen SUBCUT SCH (09:29)
[2024-03-06] MEDS: Acetaminophen/HYDROcodone 325-10 MG Tab PO PRN (11:52)
[2024-03-06] MEDS: Furosemide 20 MG/2 ML VIAL IVPUSH SCH (12:11)
[2024-03-06] MEDS: Gadobenate Dimeglumine 529 MG/ML 20 ML SDV IVPUSH ONE (13:10)
[2024-03-07 08:01] LABS: BASOPHILS ABSOLUTE AUTO 0.01 K/uL (0.00-0.20); BASOPHILS PERCENT AUTO 0.2 % (0.0-1.0); EOSINOPHILS ABSOLUTE AUTO 0.01 K/uL (0.00-0.45); EOSINOPHILS PERCENT AUTO 0.2 % (0.0-6.0); HEMATOCRIT 29.5 % (42.0-52.0); HEMOGLOBIN 9.6 g/dL (14.0-18.0); IMMATURE GRAN ABSOLUTE AUTO 0.02 K/uL (0.00-0.05); IMMATURE GRAN PERCENT AUTO 0.3 % (0.0-0.4); LYMPHOCYTES ABSOLUTE AUTO 0.52 K/uL (1.00-4.80); LYMPHOCYTES PERCENT AUTO 7.8 % (24.0-44.0); MEAN CORPUSCULAR HEMOGLOBIN 28.3 pg (28.0-32.0); MEAN CORPUSCULAR HGB CONC 32.5 g/dL (32.0-36.0); MEAN PLATELET VOLUME 10.5 fL (9.4-12.4); MONOCYTES ABSOLUTE AUTO 0.71 K/uL (0.00-0.80); MONOCYTES PERCENT AUTO 10.7 % (0.0-8.0); NEUTROPHILS ABSOLUTE AUTO 5.37 K/uL (1.80-7.70); NEUTROPHILS PERCENT AUTO 80.8 % (41.0-71.0); PLATELET COUNT,PLT 268 K/uL (150-400); RED BLOOD CELL COUNT 3.39 M/uL (4.52-5.90); WHITE BLOOD CELL COUNT,WBC 6.64 K/uL (3.9-11.3)
[2024-03-07 08:36] LABS: ALBUMIN 2.3 g/dL (3.4-5.0); BILIRUBIN TOTAL 0.5 mg/dL (0.2-1.0); CALCIUM 8.2 mg/dL (8.5-10.1); CARBON DIOXIDE,CO2 26.3 mmol/L (21.0-32.0); CREATININE 1.3 mg/dL (0.8-1.3); EST CRCL DRUG DOSING (CG) 54.71 mL/min; POTASSIUM,K 3.9 mmol/L (3.5-5.1); PROTEIN TOTAL,TP 6.5 g/dL (6.4-8.2)
[2024-03-07 08:44] LABS: A/G RATIO 0.6 (0.9-1.6)
[2024-03-07 20:01] VITALS: BP 133/71; PULSE 82
== END 2024-03-07 13:30 | DRG 871 ==
LOC: MW.ED 15:08 → MW.MS 19:41 → OBSVTOIN 19:41
PROVIDERS: ADMIT Family Medicine; ATTEND Family Medicine
DX: R06.02 Shortness of breath (principal); R78.81 Bacteremia; J96.01 Acute respiratory failure with hypoxia; L97.419 Non-pressure chronic ulcer of right heel and midfoot with unspecified severity; J44.9 Chronic obstructive pulmonary disease, unspecified; E11.621 Type 2 diabetes mellitus with foot ulcer; Z75.8 Other problems related to medical facilities and other health care; D64.9 Anemia, unspecified; F41.9 Anxiety disorder, unspecified; F32.A Depression, unspecified; I10 Essential (primary) hypertension; G89.29 Other chronic pain; M54.9 Dorsalgia, unspecified; E78.00 Pure hypercholesterolemia, unspecified; E11.42 Type 2 diabetes mellitus with diabetic polyneuropathy; N28.9 Disorder of kidney and ureter, unspecified; Z88.0 Allergy status to penicillin; Z98.49 Cataract extraction status, unspecified eye; Z91.018 Allergy to other foods; Z79.899 Other long term (current) drug therapy; Z87.442 Personal history of urinary calculi; Z98.84 Bariatric surgery status; Z98.890 Other specified postprocedural states; Z89.422 Acquired absence of other left toe(s); Z89.421 Acquired absence of other right toe(s); Z96.659 Presence of unspecified artificial knee joint; Z79.84 Long term (current) use of oral hypoglycemic drugs
CPT/HCPCS: 0241U; 36415; 71045; 73630; 73720; 80048; 80053; 80202; 81001; 82550; 82947; 83036; 83540; 83605; 83735; 83880; 84439; 84443; 84484; 85025; 85610; 85652; 85730; 86140; 87040; 87154; 93005; 93306; 96360; 97161; 99285; 87077; 87186; 93010; A9270-GY; A9577; J0696; J1815-GY; J1940; J2470; J2543; J3370; J3372; J3490; J7030; J7050

== ENCOUNTER 2024-05-17 09:23 | Emergency (ER) | payer MEDICARE, OTHER ==
[2024-05-17 10:13] LABS: BASOPHILS ABSOLUTE AUTO 0.03 K/uL (0.00-0.20); BASOPHILS PERCENT AUTO 0.4 % (0.0-1.0); HEMATOCRIT 28.1 % (42.0-52.0); HEMOGLOBIN 8.9 g/dL (14.0-18.0); IMMATURE GRAN ABSOLUTE AUTO 0.03 K/uL (0.00-0.05); IMMATURE GRAN PERCENT AUTO 0.4 % (0.0-0.4); LYMPHOCYTES ABSOLUTE AUTO 0.47 K/uL (1.00-4.80); LYMPHOCYTES PERCENT AUTO 6.4 % (24.0-44.0); MEAN CORPUSCULAR HEMOGLOBIN 27.6 pg (28.0-32.0); MEAN CORPUSCULAR HGB CONC 31.7 g/dL (32.0-36.0); MEAN CORPUSCULAR VOLUME 87.3 fL (83.0-99.0); MEAN PLATELET VOLUME 10.4 fL (9.4-12.4); MONOCYTES ABSOLUTE AUTO 0.72 K/uL (0.00-0.80); MONOCYTES PERCENT AUTO 9.8 % (0.0-8.0); NEUTROPHILS ABSOLUTE AUTO 6.12 K/uL (1.80-7.70); PLATELET COUNT,PLT 237 K/uL (150-400); RED BLOOD CELL COUNT 3.22 M/uL (4.52-5.90); WHITE BLOOD CELL COUNT,WBC 7.37 K/uL (3.9-11.3)
[2024-05-17 10:40] LABS: A/G RATIO 0.5 (0.9-1.6); ALBUMIN 2.5 g/dL (3.4-5.0); BILIRUBIN TOTAL 0.9 mg/dL (0.2-1.0); CALCIUM 8.4 mg/dL (8.5-10.1); CARBON DIOXIDE,CO2 27.5 mmol/L (21.0-32.0); CREATININE 1.6 mg/dL (0.8-1.3); EST CRCL DRUG DOSING (CG) 43.79 mL/min; PROTEIN TOTAL,TP 7.3 g/dL (6.4-8.2)
[2024-05-17 10:43] LABS: LACTIC ACID 1.1 mmol/L (0.4-2.0)
[2024-05-17 11:05] LABS: PRO B-TYPE NATRIUR PEPT,BNPPRO 5770 pg/mL (0-125)
[2024-05-17 11:14] LABS: CORONAVIRUS COVID-19 NAA POSITIVE (NEGATIVE); INFLUENZA A NAA NEGATIVE (NEGATIVE); INFLUENZA B NAA NEGATIVE (NEGATIVE); RESPIRATORY SYNCYTIAL VIR NAA NEGATIVE (NEGATIVE)
[2024-05-17] MEDS: Acetaminophen 325 MG Tab PO ONE (11:28)
[2024-05-17] MEDS: Sodium Chloride 0.9% 10 ML Syringe FLUSH PRN (11:29)
[2024-05-17] MEDS: Sodium Chloride 0.9% 2.5 ML Syringe FLUSH PRN (11:29)
[2024-05-17 13:20] VITALS: BP 103/51; PULSE 81
== END 2024-05-17 13:19 | disposition home or self-care (01) ==
LOC: MW.ED 09:23
DX: U07.1 COVID-19 (principal); N17.9 Acute kidney failure, unspecified; D64.9 Anemia, unspecified; I10 Essential (primary) hypertension; E78.00 Pure hypercholesterolemia, unspecified; J44.9 Chronic obstructive pulmonary disease, unspecified; E11.9 Type 2 diabetes mellitus without complications; Z79.899 Other long term (current) drug therapy; Z88.0 Allergy status to penicillin; Z91.018 Allergy to other foods; Z75.8 Other problems related to medical facilities and other health care
CPT/HCPCS: 0241U; 36415; 70450; 71045; 80053; 83605; 83880; 84484; 85025; 87040; 87077; 87186; 99285; A9270; J3490; 99284

== ENCOUNTER 2024-05-18 10:50 | Emergency (ER) | payer MEDICARE, OTHER ==
[2024-05-18] MEDS ORDERED: Sodium Chloride 0.9% 10 ML Syringe FLUSH PRN (11:00)
[2024-05-18] MEDS ORDERED: Sodium Chloride 0.9% 2.5 ML Syringe FLUSH PRN (11:00)
[2024-05-18 11:36] LABS: BASOPHILS ABSOLUTE AUTO 0.03 K/uL (0.00-0.20); BASOPHILS PERCENT AUTO 0.2 % (0.0-1.0); HEMATOCRIT 29.6 % (42.0-52.0); HEMOGLOBIN 9.3 g/dL (14.0-18.0); IMMATURE GRAN ABSOLUTE AUTO 0.06 K/uL (0.00-0.05); IMMATURE GRAN PERCENT AUTO 0.4 % (0.0-0.4); LYMPHOCYTES ABSOLUTE AUTO 0.59 K/uL (1.00-4.80); LYMPHOCYTES PERCENT AUTO 3.9 % (24.0-44.0); MEAN CORPUSCULAR HEMOGLOBIN 27.3 pg (28.0-32.0); MEAN CORPUSCULAR HGB CONC 31.4 g/dL (32.0-36.0); MEAN CORPUSCULAR VOLUME 86.8 fL (83.0-99.0); MEAN PLATELET VOLUME 10.8 fL (9.4-12.4); MONOCYTES ABSOLUTE AUTO 0.78 K/uL (0.00-0.80); MONOCYTES PERCENT AUTO 5.2 % (0.0-8.0); NEUTROPHILS ABSOLUTE AUTO 13.68 K/uL (1.80-7.70); NEUTROPHILS PERCENT AUTO 90.3 % (41.0-71.0); PLATELET COUNT,PLT 254 K/uL (150-400); RED BLOOD CELL COUNT 3.41 M/uL (4.52-5.90); WHITE BLOOD CELL COUNT,WBC 15.14 K/uL (3.9-11.3)
[2024-05-18] MEDS: Sodium Chloride 0.9% 1,000 ML IV STA ×2 (11:57→13:56)
[2024-05-18 12:08] LABS: A/G RATIO 0.5 (0.9-1.6); ALBUMIN 2.5 g/dL (3.4-5.0); BILIRUBIN TOTAL 0.9 mg/dL (0.2-1.0); CALCIUM 9.4 mg/dL (8.5-10.1); CARBON DIOXIDE,CO2 27.2 mmol/L (21.0-32.0); CREATININE 1.8 mg/dL (0.8-1.3); EST CRCL DRUG DOSING (CG) 37.74 mL/min; POTASSIUM,K 4.2 mmol/L (3.5-5.1); PROTEIN TOTAL,TP 7.7 g/dL (6.4-8.2)
[2024-05-18 12:10] LABS: LACTIC ACID 1.6 mmol/L (0.4-2.0)
[2024-05-18] MEDS ORDERED: VANCOmycin 2 GM/400 ML 400 ML ONE (12:28)
[2024-05-18] MEDS: Iopamidol 755 MG/ML 500 ML Multipack Bottle IVPUSH STA (12:37)
[2024-05-18] MEDS: VANCOmycin 2 GM/400 ML 2 GM in Premix Bag 1 BAG IV ONE (13:00)
[2024-05-18] MEDS: Morphine 4 MG/ML Syringe IVPUSH ONE ×2 (13:03→14:46)
[2024-05-18 13:32] VITALS: BP 113/79; PULSE 125
[2024-05-18] MEDS: Acetaminophen 325 MG Tab PO ONE (13:52)
== END 2024-05-18 15:05 ==
LOC: MW.ED 10:50
DX: U07.1 COVID-19 (principal); I71.40 Abdominal aortic aneurysm, without rupture, unspecified; M54.9 Dorsalgia, unspecified; R78.81 Bacteremia; N17.9 Acute kidney failure, unspecified; I10 Essential (primary) hypertension; J45.909 Unspecified asthma, uncomplicated; E78.00 Pure hypercholesterolemia, unspecified; E11.9 Type 2 diabetes mellitus without complications; Z88.0 Allergy status to penicillin; Z91.018 Allergy to other foods; Z79.899 Other long term (current) drug therapy; Z75.8 Other problems related to medical facilities and other health care
CPT/HCPCS: 36415; 71045; 73620; 74177; 80053; 83605; 85025; 87040; 96361; 96365; 96366; 96375; 96376; 99285; A9270; J2270; J3372; J7030; Q9967